=== PATIENT | female | born 1960 | race Caucasian/White ===

== ENCOUNTER 2018-05-13 08:17 | Outpatient (CLI) | payer MEDICAID, SELFPAY ==
[2018-05-13 08:41] LABS: Mean Corp. HGB Concentration 34.2 g/dL (32.0-36.0); Mean Corpuscular Hemoglobin 30.8 pg (27.0-33.0); Mean Platelet Volume 11.3 fL (8.0-11.0); Platelet Count 247 x1000/uL (130-400); RBC 4.22 m/cumm (4.00-5.20); RBC Distribution Width 12.2 % (11.7-14.6); White Blood Cell Count 6.95 k/cumm (4.4-10.8)
[2018-05-13 09:42] LABS: Anion Gap 9.6 mmol/L (3-11); BUN 23 mg/dL (7-18); CO2 29.4 mmol/L (21.0-32.0); CREATININE 1.18 mg/dL (0.55-1.02); Chloride 103 mmol/L (98-107); Estimated GFR 47.05 (mL/min/1.73m2); Magnesium 2.1 mg/dL (1.8-2.4); Potassium 4.8 mmol/L (3.5-5.1); Sodium 142 mmol/L (136-145)
[2018-05-13 09:49] LABS: Hemoglobin A1C 6.4 % (4.5-6.2)
[2018-05-13 09:53] LABS: Microalb ug/mg Crea 3.1 ug/mg Cr
== END 2018-05-13 08:18 ==
PROVIDERS: PCP General Practice; Visit Provider General Practice
DX: K92.1 Melena (principal); R07.9 Chest pain, unspecified
CPT/HCPCS: 36415; 80051; 84520; 85027; 82043; 82565; 82570; 83036; 83735

== ENCOUNTER 2018-12-22 13:41 | Emergency (ER) | payer MEDICAID, SELFPAY ==
[2018-12-22] VITALS (17 sets, daily range): BP systolic 95–128; BP diastolic 56–89; PULSE 36–112; RESP 13–22; TEMP 36.5; O2SAT 95–99
[2018-12-22 14:29] LABS: Abs Immature Grans 0.01 k/cumm (0.0-0.09); Absolute Basophil Count 0.06 k/cumm (0.0-0.2); Absolute Eosinophil Count 0.19 k/cumm (0.0-0.7); Absolute Lymphocyte Count 2.53 k/cumm (1.2-3.4); Absolute Monocyte Count 0.66 k/cumm (0.11-0.7); Absolute Neutrophil Count 4.63 k/cumm (1.2-6.7); Basophils % 0.7; Eosinophils % 2.4; HCT 41.7 % (36.0-46.0); HGB 14.3 g/dL (12.0-15.5); Immature Grans % 0.1; Lymphocytes % 31.3; Mean Corp. HGB Concentration 34.3 g/dL (32.0-36.0); Mean Corpuscular Hemoglobin 30.6 pg (27.0-33.0); Mean Corpuscular Volume 89.1 fL (80-95); Mean Platelet Volume 11.3 fL (8.0-11.0); Monocytes % 8.2; Neutrophils % 57.3; Platelet Count 231 x1000/uL (130-400); RBC 4.68 m/cumm (4.00-5.20); RBC Distribution Width 12.7 % (11.7-14.6); White Blood Cell Count 8.08 k/cumm (4.4-10.8)
[2018-12-22 14:57] LABS: ALT 22 U/L (12-78); AST 17 U/L (15-37); Albumin 4.4 g/dL (3.4-5.0); Alkaline Phosphatase 75 U/L (46-116); Anion Gap 12.2 mmol/L (3-11); BUN 19 mg/dL (7-18); Bilirubin, Total 0.4 mg/dL (0.2-1.0); CO2 28.8 mmol/L (21.0-32.0); CREATININE 1.19 mg/dL (0.55-1.02); Calcium 9.9 mg/dL (8.5-10.1); Chloride 98 mmol/L (98-107); Estimated GFR 46.43 (mL/min/1.73m2); Glucose 100 mg/dL (70-100); Magnesium 1.9 mg/dL (1.8-2.4); Potassium 3.7 mmol/L (3.5-5.1); Sodium 139 mmol/L (136-145); Total Protein 8.8 g/dL (6.4-8.2)
[2018-12-22 15:01] LABS: Troponin I < 0.02 ng/mL (0.00-0.06)
[2018-12-22 15:04] LABS: TSH (W/Ref FT4) 3.37 uIU/mL (0.358-3.74)
--- NOTE | 2018-12-22 15:04 | W.ED.GENAD ---
Discharge Plan Disposition Patient Disposition: HOME Discharge Details Chief Complaint: Chest Pain Clinical Impression: Shingles, Arrhythmia Primary Care Provider: Ad Gonzalez ED Provider: Toan Calvillo Home Meds and New Rx's Prescriptions: New valacyclovir [Valtrex] 1 gram tablet 1,000 mg PO TID 7 Days Qty: 20 RF: 0 lidocaine 5 % adhesive patch,medicated 1 patch TP DAILY Qty: 15 RF: 0 Continued metformin 500 mg tablet 500 mg PO BID RF: 0 aspirin 325 mg tablet 325 mg PO DAILY RF: 0 Cholestyramine Light 4 gram powder 4 gm PO BID RF: 0 ranitidine HCl 150 MG capsule 150 mg PO DAILY RF: 0 hydrochlorothiazide 25 MG tablet 25 mg PO DAILY RF: 0 Slow-Mag 71.5 MG tablet,delayed release (DR/EC) 143 mg PO DAILY Qty: 1 RF: 0 lisinopril 20 MG tablet 20 mg PO DAILY Qty: 30 RF: 0 acetaminophen [Mapap Extra Strength] 500 MG tablet 500 mg PO PRN PRN (Reason: Pain) RF: 0 Discharge Instructions Additional Instructions: Please go to cardiology clinic today to be seen by Dr. Hernandez. Please contact your primary care physician to arrange follow-up. Call today. Return to the ER for any worsening or new concerning symptoms. Referrals: Ad Gonzalez MD [Primary Care Provider] - Mike Hernandez MD [MD NON-[facility] STAFF PHYSICIAN] - Medical Decision Making 15:29 -- 58yo f with questionable history of atrial fibrillation, here with left lateral chest wall pain, skin sensitivity and vesicular rash left T5 dermatome. Suspect shingles - will treat with valtrex (rash noticed <72 hours ago) and lidocaine patch. Screening labs were sent by nursing per protocol for chest pain, reviewed by me and nondiagnostic. He was reviewed and interpreted by me: No discernible P waves, narrow complex at rate of approximately 35 bpm, appears to be a junctional escape rhythm versus bigeminy. I called and spoke with Dr. Hernandez, on-call technical services coordinator, he reviewed the ECG and we discussed the patient's presentation. He recommends outpatient follow-up and will be happy to see the patient in clinic today. Patient was instructed to go to cardiology clinic today as arranged. Dental infection recently completed amoxicillin and plan for extraciton tomorrow. 12 customary discharge instructions were provided. HPI General Mode of arrival: ambulatory. Date/Time Provider Initiated Documentation: 12/22/18 14:06. Limitations to Documentation: no limitations. Information obtained by: patient. HPI Narrative: 58 yo f with history of diabetes, questionable atrial fibrillation, recent dental infection completed course of amoxicillin today with plan for dental extraction tomorrow, here with left chest pain. Patient notes the pain started about 1 week ago. Patient states the pain started as a skin sensitivitythat was localized to her left back and radiated around laterally along flank to chest. She subsequently developed a stabbing sensation left chest that has since resolved and now continues to have skin sensitivity and pulsing sensation along her skin. Pain is now localized lateral chest wall and under her left breast. notes that there is a subtle rash in the area left back that started 2 days ago. She denies fevers. She has no associated shortness of breath. Denies syncope. Related Data Home Medications Medication Instructions Recorded Confirmed Slow-Mag 143 mg PO DAILY #1 04/18/15 12/22/18 hydrochlorothiazide 25 mg PO DAILY tab-cap 04/18/15 12/22/18 lisinopril 20 mg PO DAILY #30 tab-cap 04/18/15 12/22/18 ranitidine HCl 150 mg PO DAILY tab-cap 04/18/15 12/22/18 acetaminophen [Mapap Extra 500 mg PO PRN PRN 05/31/15 12/22/18 Strength] aspirin 325 mg tablet 325 mg PO DAILY 07/21/18 12/22/18 cholestyramine-aspartame 4 gram 4 gm PO BID gm 07/21/18 12/22/18 oral powder metformin 500 mg tablet 500 mg PO BID 07/21/18 12/22/18 lidocaine 1 patch TP DAILY #15 each 12/22/18 valacyclovir [Valtrex] 1,000 mg PO TID 7 Days #20 tab 12/22/18 Previous Rx's Medication Instructions Recorded lidocaine 1 patch TP DAILY #15 each 12/22/18 valacyclovir [Valtrex] 1,000 mg PO TID 7 Days #20 tab 12/22/18 Allergies Allergy/AdvReac Type Severity Reaction Status Date / Time No Known Allergies Allergy Unverified 06/16/15 10:17 General Stated Complaint: Chest Pain MARIO: 2 Review of Systems Review of Systems All systems reviewed & are unremarkable except as noted in HPI and below Constitutional Denies fever(s) Cardiovascular Denies dyspnea Respiratory Denies cough and Denies dyspnea Integumentary/Breasts Reports as per HPI [facility] Medical History Diverticulitis Migraines Chronic back pain GERD (gastroesophageal reflux disease) Hypertension Surgical History Cholecystectomy (06/01/15) Social History Smoking/Tobacco Use Status: Former Tobacco Use Alcohol Intake: former Drug use: Never Substance use type: does not use Exam Const General: cooperative and no acute distress HENMT Mouth: moist mucous membranes Eyes Conjunctivae: normal conjunctivae Sclera: normal sclerae Resp Auscultation: clear to auscultation bilaterally, no rales, no rhonchi and no wheezes Cardio Jugular venous pressure: no JVD Rate: regular rate and not tachycardic Rhythm: abnormal rhythm GI Palpation: soft, not firm, no guarding, no masses, not rigid and nontender Skin Rashes: rashes noted (Vesicular rash without ulceration left T5 dermatome, ttp) Neuro General: alert, awake and tone normal Extrem General: no edema Course Vital Signs Temperature 36.5 C 12/22/18 13:44 Pulse 36 L 12/22/18 13:44 Respiratory Rate 18 12/22/18 13:44 Blood Pressure 124/73 12/22/18 13:44 Pulse Oximetry 98 12/22/18 13:44 Temperature 36.5 C 12/22/18 13:44 Temperature Source Skin 12/22/18 13:44 Pulse 36 L 12/22/18 13:44 Respiratory Rate 18 12/22/18 13:44 Blood Pressure 124/73 12/22/18 13:44 Pulse Oximetry 98 12/22/18 13:44 Oxygen Delivery Method Room Air 12/22/18 13:44 Oxygen Flow Rate 0 12/22/18 13:44 Lab/Test Results Lab/Test Results: Laboratory Tests Range/Units 12/22/18 12/22/18 14:09 14:09 WBC (4.4-10.8) k/cumm 8.08 RBC (4.00-5.20) m/cumm 4.68 Hgb (12.0-15.5) g/dL 14.3 Hct (36.0-46.0) % 41.7 MCV (80-95) fL 89.1 MCH (27.0-33.0) pg 30.6 MCHC (32.0-36.0) g/dL 34.3 RDW (11.7-14.6) % 12.7 Plt Count (130-400) x1000/uL 231 MPV (8.0-11.0) fL 11.3 H Immature Gran % 0.1 Neutrophils % 57.3 Lymphocytes % 31.3 Monocytes % 8.2 Eosinophils % 2.4 Basophils % 0.7 Absolute Neutrophils (1.2-6.7) k/cumm 4.63 Absolute Lymphocytes (1.2-3.4) k/cumm 2.53 Absolute Monocytes (0.11-0.7) k/cumm 0.66 Absolute Eosinophils (0.0-0.7) k/cumm 0.19 Absolute Basophils (0.0-0.2) k/cumm 0.06 Sodium (136-145) mmol/L 139 Potassium (3.5-5.1) mmol/L 3.7 Chloride (98-107) mmol/L 98 Carbon Dioxide (21.0-32.0) mmol/L 28.8 Anion Gap (3-11) mmol/L 12.2 H BUN (7-18) mg/dL 19 H Creatinine (0.55-1.02) mg/dL 1.19 H Estimated GFR/1.73 m2 (mL/min/1.73m2) 46.43 Glucose (70-100) mg/dL 100 Calcium (8.5-10.1) mg/dL 9.9 Magnesium (1.8-2.4) mg/dL 1.9 Total Bilirubin (0.2-1.0) mg/dL 0.4 AST (15-37) U/L 17 ALT (12-78) U/L 22 Alkaline Phosphatase (46-116) U/L 75 Troponin I (0.00-0.06) ng/mL < 0.02 Total Protein (6.4-8.2) g/dL 8.8 H Albumin (3.4-5.0) g/dL 4.4
--- NOTE | 2018-12-22 15:08 | ED.GENADUL_ITS ---
Discharge Plan Disposition Patient Disposition: HOME Discharge Details Chief Complaint: Chest Pain Clinical Impression: Shingles, Arrhythmia Primary Care Provider: Ad Gonzalez ED Provider: Toan Calvillo Home Meds and New Rx's Prescriptions: New valacyclovir [Valtrex] 1 gram tablet 1,000 mg PO TID 7 Days Qty: 20 RF: 0 lidocaine 5 % adhesive patch,medicated 1 patch TP DAILY Qty: 15 RF: 0 Continued metformin 500 mg tablet 500 mg PO BID RF: 0 aspirin 325 mg tablet 325 mg PO DAILY RF: 0 Cholestyramine Light 4 gram powder 4 gm PO BID RF: 0 ranitidine HCl 150 MG capsule 150 mg PO DAILY RF: 0 hydrochlorothiazide 25 MG tablet 25 mg PO DAILY RF: 0 Slow-Mag 71.5 MG tablet,delayed release (DR/EC) 143 mg PO DAILY Qty: 1 RF: 0 lisinopril 20 MG tablet 20 mg PO DAILY Qty: 30 RF: 0 acetaminophen [Mapap Extra Strength] 500 MG tablet 500 mg PO PRN PRN (Reason: Pain) RF: 0 Discharge Instructions Additional Instructions: Please go to cardiology clinic today to be seen by Dr. Hernandez. Please contact your primary care physician to arrange follow-up. Call today. Return to the ER for any worsening or new concerning symptoms. Referrals: Ad Gonzalez MD [Primary Care Provider] - Mike Hernandez MD [MD NON-[facility] STAFF PHYSICIAN] - Medical Decision Making 15:29 -- 58yo f with questionable history of atrial fibrillation, here with left lateral chest wall pain, skin sensitivity and vesicular rash left T5 dermatome. Suspect shingles - will treat with valtrex (rash noticed <72 hours ago) and lidocaine patch. Screening labs were sent by nursing per protocol for chest pain, reviewed by me and nondiagnostic. He was reviewed and interpreted by me: No discernible P waves, narrow complex at rate of approximately 35 bpm, appears to be a junctional escape rhythm versus bigeminy. I called and spoke with Dr. Hernandez, on-call ems manager, he reviewed the ECG and we discussed the patient's presentation. He recommends outpatient follow-up and will be happy to see the patient in clinic today. Patient was instructed to go to cardiology clinic today as arranged. Dental infection recently completed amoxicillin and plan for extraciton pita orrow. 12 customary discharge instructions were provided. HPI General Mode of arrival: ambulatory . Date/Time Provider Initiated Documentation: 12/22/18 14:06 . Limitations to Documentation: no limitations . Information obtained by: patient . HPI Narrative: 58 yo f with history of diabetes, questionable atrial fibrillation, recent dental infection completed course of amoxicillin today with plan for dental extraction tomorrow, here with left chest pain. Patient notes the pain started about 1 week ago. Patient states the pain started as a skin sensitivitythat was localized to her left back and radiated around laterally along flank to chest. She subsequently developed a stabbing sensation left chest that has since resolved and now continues to have skin sensitivity and pulsing sensation along her skin. Pain is now localized lateral chest wall and under her left breast. notes that there is a subtle rash in the area left back that started 2 days ago. She denies fevers. She has no associated shortness of breath. Denies syncope. Related Data Home Medications Medication Instructions Recorded Confirmed Slow-Mag 143 mg PO DAILY #1 04/18/15 12/22/18 hydrochlorothiazide 25 mg PO DAILY tab-cap 04/18/15 12/22/18 lisinopril 20 mg PO DAILY #30 tab-cap 04/18/15 12/22/18 ranitidine HCl 150 mg PO DAILY tab-cap 04/18/15 12/22/18 acetaminophen [Mapap Extra 500 mg PO PRN PRN 05/31/15 12/22/18 Strength] aspirin 325 mg tablet 325 mg PO DAILY 07/21/18 12/22/18 cholestyramine-aspartame 4 gram 4 gm PO BID gm 07/21/18 12/22/18 oral powder metformin 500 mg tablet 500 mg PO BID 07/21/18 12/22/18 lidocaine 1 patch TP DAILY #15 each 12/22/18 valacyclovir [Valtrex] 1,000 mg PO TID 7 Days #20 tab 12/22/18 Previous Rx's Medication Instructions Recorded lidocaine 1 patch TP DAILY #15 each 12/22/18 valacyclovir [Valtrex] 1,000 mg PO TID 7 Days #20 tab 12/22/18 Allergies Allergy/AdvReac Type Severity Reaction Status Date / Time No Known Allergies Allergy Unverified 06/16/15 10:17 General Stated Complaint: Chest Pain MARIO: 2 Review of Systems Review of Systems All systems reviewed & are unremarkable except as noted in HPI and below Constitutional Denies fever(s) Cardiovascular Denies dyspnea Respiratory Denies cough and Denies dyspnea Integumentary/Breasts Reports as per HPI [facility] Medical History Diverticulitis Migraines Chronic back pain GERD (gastroesophageal reflux disease) Hypertension Surgical History Cholecystectomy (06/01/15) Social History Smoking/Tobacco Use Status: Former Tobacco Use Alcohol Intake: former Drug use: Never Substance use type: does not use Exam Const General: cooperative and no acute distress HENMT Mouth: moist mucous membranes Eyes Conjunctivae: normal conjunctivae Sclera: normal sclerae Resp Auscultation: clear to auscultation bilaterally, no rales, no rhonchi and no wheezes Cardio Jugular venous pressure: no JVD Rate: regular rate and not tachycardic Rhythm: abnormal rhythm GI Palpation: soft, not firm, no guarding, no masses, not rigid and nontender Skin Rashes: rashes noted (Vesicular rash without ulceration left T5 dermatome, ttp) Neuro General: alert, awake and tone normal Extrem General: no edema Course Vital Signs Temperature 36.5 C 12/22/18 13:44 Pulse 36 L 12/22/18 13:44 Respiratory Rate 18 12/22/18 13:44 Blood Pressure 124/73 12/22/18 13:44 Pulse Oximetry 98 12/22/18 13:44 Temperature 36.5 C 12/22/18 13:44 Temperature Source Skin 12/22/18 13:44 Pulse 36 L 12/22/18 13:44 Respiratory Rate 18 12/22/18 13:44 Blood Pressure 124/73 12/22/18 13:44 Pulse Oximetry 98 12/22/18 13:44 Oxygen Delivery Method Room Air 12/22/18 13:44 Oxygen Flow Rate 0 12/22/18 13:44 Lab/Test Results Lab/Test Results: Laboratory Tests Range/Units 12/22/18 12/22/18 14:09 14:09 WBC (4.4-10.8) k/cumm 8.08 RBC (4.00-5.20) m/cumm 4.68 Hgb (12.0-15.5) g/dL 14.3 Hct (36.0-46.0) % 41.7 MCV (80-95) fL 89.1 MCH (27.0-33.0) pg 30.6 MCHC (32.0-36.0) g/dL 34.3 RDW (11.7-14.6) % 12.7 Plt Count (130-400) x1000/uL 231 MPV (8.0-11.0) fL 11.3 H Immature Gran % 0.1 Neutrophils % 57.3 Lymphocytes % 31.3 Monocytes % 8.2 Eosinophils % 2.4 Basophils % 0.7 Absolute Neutrophils (1.2-6.7) k/cumm 4.63 Absolute Lymphocytes (1.2-3.4) k/cumm 2.53 Absolute Monocytes (0.11-0.7) k/cumm 0.66 Absolute Eosinophils (0.0-0.7) k/cumm 0.19 Absolute Basophils (0.0-0.2) k/cumm 0.06 Sodium (136-145) mmol/L 139 Potassium (3.5-5.1) mmol/L 3.7 Chloride (98-107) mmol/L 98 Carbon Dioxide (21.0-32.0) mmol/L 28.8 Anion Gap (3-11) mmol/L 12.2 H BUN (7-18) mg/dL 19 H Creatinine (0.55-1.02) mg/dL 1.19 H Estimated GFR/1.73 m2 (mL/min/1.73m2) 46.43 Glucose (70-100) mg/dL 100 Calcium (8.5-10.1) mg/dL 9.9 Magnesium (1.8-2.4) mg/dL 1.9 Total Bilirubin (0.2-1.0) mg/dL 0.4 AST (15-37) U/L 17 ALT (12-78) U/L 22 Alkaline Phosphatase (46-116) U/L 75 Troponin I (0.00-0.06) ng/mL < 0.02 Total Protein (6.4-8.2) g/dL 8.8 H Albumin (3.4-5.0) g/dL 4.4
[2018-12-22] MEDS: valACYclovir 500 MG TAB 1000 MG PO (15:18)
[2018-12-22] MEDS: Lidocaine 5% Patch 1 PATCH (16:02)
== END 2018-12-22 15:30 | disposition home or self-care (01) ==
PROVIDERS: Emergency Provider Student in an Organized Health Care Education/Training Program; PCP General Practice
DX: B02.9 Zoster without complications (principal); I49.9 Cardiac arrhythmia, unspecified; E11.9 Type 2 diabetes mellitus without complications; Z79.84 Long term (current) use of oral hypoglycemic drugs; I10 Essential (primary) hypertension
CPT/HCPCS: 36415; 80053; 93005; 99284; 83735; 84443; 84484; 85025; 93010

== ENCOUNTER 2018-12-26 03:07 | Outpatient (CLI) | payer MEDICAID, SELFPAY ==
--- NOTE | 2018-12-29 16:06 | HOLTER_ITS ---
DATE OF ROLLER LEVELER OPERATOR: December 29, 2018 INDICATION: Not available. REQUESTING PROVIDER: Mike Hernandez M.D. FINDINGS: The patient was monitored for two days. Baseline rhythm sinus rhythm. Average heart rate 76 bpm, range 53-115 bpm. Frequent PVC's, 7.9%, 16,644 beats per 48 hours. No VT. Rare PAC's, 0.3%, 681 PAC's per 48 hours. One 6-beat atrial run with a maximum heart rate of 156 bpm. No pauses greater than three seconds. No high-degree heart block. No patient events. FINAL INTERPRETATION: Frequent PVC's, asymptomatic.
== END 2018-12-26 03:27 ==
PROVIDERS: PCP General Practice; Visit Provider Internal Medicine Interventional Cardiology
DX: I48.91 Unspecified atrial fibrillation (principal); I47.1 Supraventricular tachycardia
CPT/HCPCS: 93225

== ENCOUNTER 2018-12-29 09:35 | Outpatient (CLI) | payer MEDICAID, SELFPAY | END 2018-12-29 09:55 | PROVIDERS: PCP General Practice; Visit Provider Internal Medicine Interventional Cardiology | DX: I48.91 Unspecified atrial fibrillation (principal); I47.1 Supraventricular tachycardia | CPT/HCPCS: 93226 ==

== ENCOUNTER 2018-12-31 00:24 | Outpatient (CLI) | payer MEDICAID, SELFPAY ==
--- NOTE | 2018-12-31 14:00 | MERGE_ITS ---
*[facility]* *[facility]* [address] [place] [address] Date of study: 12/31/2018 Transthoracic Echocardiography M-mode, complete 2D, complete spectral Doppler, and color Doppler *STUDY CONCLUSIONS* Summary: 1. Left ventricle: The cavity size was normal. Wall thickness was normal. Systolic function was normal. The estimated ejection fraction was 55-60%. Wall motion was normal; there were no regional wall motion abnormalities. 2. Aortic valve: A bicuspid morphology cannot be excluded; normal thickness leaflets. There was trivial regurgitation. 3. Aorta: There was an aneurysm, in the ascending aorta. The maximal diameter was 4.5cm. 4. Right ventricle: The cavity size was normal. Wall thickness was normal. Systolic function was normal. 5. Tricuspid valve: There was mild-moderate regurgitation. *PATIENT PRESENTATION* Height: 172.7cm ((68in) ) S/D Pressure: 116 / 85 Weight: 95.7kg ((210.6lb) ) BSA: 2.17m^2 Test start time: 02:10 PM. Test stop time: 03:15 PM. REFERRING Mike Hernandez MD PERFORMING Unknown PERFORMING [facility] FANCY SEWER RT Joel Vo)(DAVID) DEVANG *PROCEDURE DATA* Procedure information: The patient was identified by two identifiers. This study was interpreted by [facility]. Pertinent images and digital data are archived for permanent storage and are available for subsequent review. No prior study was available for comparison. Study status: Routine. Transthoracic echocardiography. M-mode, complete 2D, complete spectral Doppler, and color Doppler. A Transthoracic Echocardiogram was performed. Scanning was performed from the parasternal, apical, subcostal, and suprasternal notch acoustic windows. Images were obtained using an [id number] cardiac ultrasound machine. Image quality was adequate. Study completion: The patient tolerated the procedure well. There were no complications. History: PMH: Atrial fibrillation i48.91. *CARDIAC ANATOMY* Left ventricle: The cavity size was normal. Wall thickness was normal. Systolic function was normal. The estimated ejection fraction was 55-60%. Wall motion was normal; there were no regional wall motion abnormalities. Diastolic parameters were normal. Aortic valve: A bicuspid morphology cannot be excluded; normal thickness leaflets. Mobility was not restricted. Doppler: Transvalvular velocity was within the normal range. There was no stenosis. There was trivial regurgitation. VTI ratio of LVOT to aortic valve: 0.51. Valve area (VTI): 1.6cm^2. Indexed valve area (VTI): 0.7cm^2/m^2. Peak velocity ratio of LVOT to aortic valve: 0.49. Valve area (Vmax): 1.5cm^2. Indexed valve area (Vmax): 0.7cm^2/m^2. Mean velocity ratio of LVOT to aortic valve: 0.5. Valve area (Vmean): 1.6cm^2. Indexed valve area (Vmean): 0.7cm^2/m^2. Mean gradient (S): 8.2mm Hg. Peak gradient (S): 13.5mm Hg. Aorta: There was an aneurysm, in the ascending aorta. The maximal diameter was 4.5cm. Aortic root: The aortic root was at upper normal limits. Ascending aorta: The ascending aorta was moderately dilated. Mitral valve: Structurally normal valve. Mobility was not restricted. Doppler: Transvalvular velocity was within the normal range. There was no evidence for stenosis. There was trivial regurgitation. Valve area by pressure half-time: 5.1cm^2. Indexed valve area by pressure half-time: 2.3cm^2/m^2. Peak gradient (D): 4.2mm Hg. Left atrium: The atrium was normal in size. Right ventricle: The cavity size was normal. Wall thickness was normal. Systolic function was normal. Pulmonic valve: Doppler: Transvalvular velocity was within the normal range. There was no evidence for stenosis. There was no significant regurgitation. Tricuspid valve: Structurally normal valve. Doppler: Transvalvular velocity was within the normal range. There was no evidence for stenosis. There was mild-moderate regurgitation. Pulmonary artery: Pulmonary systolic pressure was within the normal range, in the range of 30mm Hg to 35mm Hg. Right atrium: The atrium was normal in size. Pericardium: There was no pericardial effusion. Systemic veins: Inferior vena cava: Well visualized. The vessel was patent and normal in size. The respirophasic diameter changes were in the normal range (greater than or equal to 50%). Measurements Left ventricle Value Reference LV ID, ED, PLAX 5.1 cm 3.5 - 6.0 LV ID, ES, PLAX (H) 4.2 cm 2.1 - 4.0 LV PW thickness, ED, PLAX 0.8 cm LV end-diastolic volume, 1-p A2C 99 ml LV ejection fraction, 1-p A2C 57 % LV end-diastolic volume, 1-p A4C 87 ml LV ejection fraction, 1-p A4C 61 % LV e', lateral 0.152 m/sec LV E/e', lateral 7 LV e', medial 0.088 m/sec LV E/e', medial 12 LV e', average 0.12 m/sec LV E/e', average 9 Ventricular septum Value Reference IVS thickness, ED, PLAX 0.9 cm LVOT Value Reference LVOT ID, A-P 2.0 cm LVOT area 3.2 cm^2 LVOT peak velocity, S 0.9 m/sec LVOT mean velocity, S 0.67 m/sec LVOT VTI, S 19.0 cm LVOT peak gradient, S 3.2 mm Hg LVOT mean gradient, S 2.1 mm Hg Stroke volume (SV), LVOT DP 60 ml Stroke index (SV/bsa), LVOT DP 28 ml/m^2 Aortic valve Value Reference Aortic valve peak velocity, S 1.8 m/sec Aortic valve mean velocity, S 1.33 m/sec Aortic valve VTI, S 37.0 cm Aortic mean gradient, S 8.2 mm Hg Aortic peak gradient, S 13.5 mm Hg VTI ratio, LVOT/AV 0.51 Aortic valve area, VTI 1.6 cm^2 Velocity ratio, peak, LVOT/AV 0.49 Aortic valve area, peak velocity 1.5 cm^2 Velocity ratio, mean, LVOT/AV 0.5 Aortic valve area, mean velocity 1.6 cm^2 Aortic valve area/bsa, mean velocity 0.7 cm^2/m^2 Aorta Value Reference Aortic root ID, ED 3.7 cm Ascending aorta ID, A-P, S 4.5 cm Left atrium Value Reference LA ID, A-P, ES 3.3 cm LA ID/bsa, A-P 1.5 cm/m^2 <=2.2 LA area, ES, A4C 19.7 cm^2 8.8 - 23.4 LA area, ES, A2C 18 cm^2 LA volume/bsa, ES, 1-p A4C 28 ml/m^2 LA volume, ES, 2-p 55 ml LA volume/bsa, ES, 2-p 25 ml/m^2 LA/aortic root ratio 0.88 Mitral valve Value Reference Mitral E-wave peak velocity 1.03 m/sec Mitral A-wave peak velocity 0.78 m/sec Mitral deceleration time 150 ms 150 - 230 Mitral pressure half-time 44 ms Mitral peak gradient, D 4.2 mm Hg Mitral E/A ratio, peak 1.32 Mitral valve area, PHT, DP 5.1 cm^2 Tricuspid valve Value Reference Tricuspid regurg peak velocity 2.7 m/sec Tricuspid peak RV-RA gradient 28.4 mm Hg Right atrium Value Reference RA area, ES, A4C 18.3 cm^2 8.3 - 19.5 Legend: (L) and (H) polo values outside specified reference range. I have personally reviewed the images and have reviewed and edited the reported findings. Electronically signed by Joseph Villareal 12/31/2018 16:01
== END 2018-12-31 00:44 ==
PROVIDERS: PCP General Practice; Visit Provider Internal Medicine Interventional Cardiology
DX: I48.91 Unspecified atrial fibrillation (principal); I08.2 Rheumatic disorders of both aortic and tricuspid valves; I71.2 Thoracic aortic aneurysm, without rupture
CPT/HCPCS: 93306

== ENCOUNTER 2019-01-02 12:09 | Outpatient (CLI) | payer MEDICAID, SELFPAY ==
[2019-01-02 12:48] LABS: HCT 40.2 % (36.0-46.0); HGB 13.6 g/dL (12.0-15.5)
[2019-01-02 13:19] LABS: Hemoglobin A1C 6.6 % (4.5-6.2)
== END 2019-01-02 12:29 ==
PROVIDERS: PCP General Practice; Visit Provider General Practice
DX: E11.9 Type 2 diabetes mellitus without complications (principal); D64.9 Anemia, unspecified
CPT/HCPCS: 36415; 83036; 85014; 85018

== ENCOUNTER 2019-01-12 02:27 | Outpatient (CLI) | payer MEDICAID, SELFPAY ==
--- NOTE | 2019-02-02 10:59 | ZIOP_ITS ---
MONITOR IN PLACE: 13 days, 2 hours, January 12 - January 25, 2019 Baseline rhythm sinus. Rare single PAC. Single burst of SVT, 8-beat duration at 135 bpm. Frequent single PVC, 10.2% of total beat. Rare couplet. No VT. No bradycardia/block. One triggered event during sinus rhythm with single PAC and PVC 67 bpm. One symptomatic episode, flutter described once during sinus rhythm ventricular bigeminy 58 bpm. Average heart rate sinus 60 bpm, range 40-125 bpm.
== END 2019-01-12 02:47 ==
PROVIDERS: PCP General Practice; Visit Provider Internal Medicine Interventional Cardiology
DX: I48.91 Unspecified atrial fibrillation (principal); I49.3 Ventricular premature depolarization; I49.1 Atrial premature depolarization
CPT/HCPCS: 0296T

== ENCOUNTER 2019-01-12 14:41 | Outpatient (CLI) | payer MEDICAID, SELFPAY ==
[2019-01-12 16:24] LABS: Ferritin 137 ng/mL (8-388); Folate 19.5 ng/mL (8.6-20.0); TSH (W/Ref FT4) 1.87 uIU/mL (0.358-3.74); Vitamin B12 1103 pg/mL (193-986)
[2019-01-13 19:45] LABS: Vitamin D 25 Total 13.1 ng/ml (30-100)
== END 2019-01-12 15:01 ==
PROVIDERS: PCP General Practice; Visit Provider Internal Medicine Sleep Medicine
DX: M25.50 Pain in unspecified joint (principal); R53.83 Other fatigue; E55.9 Vitamin D deficiency, unspecified; I48.91 Unspecified atrial fibrillation; I49.3 Ventricular premature depolarization; I49.1 Atrial premature depolarization
CPT/HCPCS: 0296T; 36415; 82306; 82607; 82728; 82746; 84443

== ENCOUNTER 2019-08-11 11:10 | Emergency (ER) | payer MEDICAID, SELFPAY ==
[2019-08-11 11:12] VITALS: BP 113/88; PULSE 75; RESP 18; TEMP 36.7; O2SAT 98
--- NOTE | 2019-08-11 11:22 | W.ED.GENAD ---
Discharge Plan Disposition Patient Disposition: HOME Condition: Stable Discharge Details Chief Complaint: Orthopedic Clinical Impression: Foot pain, left Primary Care Provider: Ad Gonzalez ED Provider: Mike Florian Home Meds and New Rx's Prescriptions: New gabapentin 300 mg capsule 300 mg PO TID Qty: 30 RF: 0 prednisone 20 mg tablet 60 mg PO DAILY Qty: 15 RF: 0 Continued metformin 500 mg tablet 500 mg PO BID RF: 0 aspirin 325 mg tablet 325 mg PO DAILY RF: 0 Cholestyramine Light 4 gram powder 4 gm PO BID RF: 0 ranitidine HCl 150 MG capsule 150 mg PO DAILY RF: 0 hydrochlorothiazide 25 MG tablet 25 mg PO DAILY RF: 0 Slow-Mag 71.5 MG tablet,delayed release (DR/EC) 143 mg PO DAILY Qty: 1 RF: 0 lisinopril 20 MG tablet 20 mg PO DAILY Qty: 30 RF: 0 acetaminophen [Mapap Extra Strength] 500 MG tablet 500 mg PO PRN PRN (Reason: Pain) RF: 0 Discharge Instructions Instructions: Gout (ED) Additional Instructions: I suspect your symptoms are due to gout. It could also be due to your diabetes follow up with your primary care provider within 1-2 weeks if you have severe worsening pain or fevers return to the emergency department Medical Decision Making 58 yo female comes in with pain in her dorsal foot pain that is nontraumatic and denies fevers orchills. HAs had pain in similar area in the past and was on gabapentin with some relief of the pain. She has intact sensation of the foot with no swelling and full rom and 2+ pulses. She has very mild not warm to touch area on the foot that is 2x2cm. Given repeat pain in same foot suspect gout and will start her on steroids. NO findings to suggest infectious etiology. ADvised to f/u with pcp and return precautions given Differential Diagnosis Differential Diagnosis: gout, neuropathy HPI General Mode of arrival: ambulatory. Date/Time Provider Initiated Documentation: 08/11/19 11:11. Limitations to Documentation: no limitations. Information obtained by: patient. History of Present Illness 58 year old F presents to the emergency department with the chief complaint of left foot pain, described as moderate, Quality is described as aching, and it has been constant. No relieving factors improve symptom(s), No exacerbating factors reported . Patient did receive the following treatments prior to arrival, none Related Data Home Medications Medication Instructions Recorded Confirmed Slow-Mag 143 mg PO DAILY #1 04/18/15 08/11/19 hydrochlorothiazide 25 mg PO DAILY tab-cap 04/18/15 08/11/19 lisinopril 20 mg PO DAILY #30 tab-cap 04/18/15 08/11/19 ranitidine HCl 150 mg PO DAILY tab-cap 04/18/15 08/11/19 acetaminophen [Mapap Extra 500 mg PO PRN PRN 05/31/15 08/11/19 Strength] aspirin 325 mg tablet 325 mg PO DAILY 07/21/18 08/11/19 cholestyramine-aspartame 4 gram 4 gm PO BID gm 07/21/18 08/11/19 oral powder metformin 500 mg tablet 500 mg PO BID 07/21/18 08/11/19 gabapentin 300 mg PO TID #30 cap 08/11/19 prednisone 60 mg PO DAILY #15 tab 08/11/19 Previous Rx's Medication Instructions Recorded gabapentin 300 mg PO TID #30 cap 08/11/19 prednisone 60 mg PO DAILY #15 tab 08/11/19 Allergies Allergy/AdvReac Type Severity Reaction Status Date / Time No Known Allergies Allergy Unverified 08/11/19 11:17 General Stated Complaint: Orthopedic MARIO: 4 Review of Systems All systems reviewed & are unremarkable except as noted in HPI and below Constitutional Constitutional: Denies chills, Denies fever(s) and Denies weakness Cardiovascular Cardiovascular: Denies chest pain and Denies dyspnea Respiratory Respiratory: Denies dyspnea Gastrointestinal Gastrointestinal: Denies abdominal pain, Denies nausea and Denies vomiting Musculoskeletal Musculoskeletal: Denies joint swelling Neurologic Neurologic: Denies weakness [facility] Social History Smoking/Tobacco Use Status: Former Tobacco Use Alcohol Intake: former Drug use: Never Substance use type: does not use Do you feel safe at home: Yes Do you feel safe in your relationship?: Yes Exam Const General: no acute distress Orientation: alert HENMT Head: normal to inspection Ears: external ears normal General nose exam: external nose normal Mouth: moist mucous membranes Eyes General: appearance normal, both eyes and all related structures Neck Neck: normal visual inspection Resp Effort & Inspection: normal respiratory effort and able to speak in complete sentences Cardio Rate: regular rate Skin General skin exam: no rashes or lesions noted Neuro General: alert and oriented x3 Extrem General: full ROM and normal capillary refill Psych Mental Status: mental status grossly normal Course Vital Signs Vital signs: Vital Signs Temperature 36.7 C 08/11/19 11:12 Pulse 75 08/11/19 11:12 Respiratory Rate 18 08/11/19 11:12 Blood Pressure 113/88 08/11/19 11:12 Pulse Oximetry 98 08/11/19 11:12 Temperature 36.7 C 08/11/19 11:12 Temperature Source Skin 08/11/19 11:12 Pulse 75 08/11/19 11:12 Respiratory Rate 18 08/11/19 11:12 Respiratory Effort Non-Labored 08/11/19 11:19 Blood Pressure 113/88 08/11/19 11:12 Blood Pressure Position Sitting 08/11/19 11:12 Pulse Oximetry 98 08/11/19 11:12 Oxygen Delivery Method Room Air 08/11/19 11:12 Oxygen Flow Rate 0 08/11/19 11:12
== END 2019-08-11 11:35 | disposition home or self-care (01) ==
PROVIDERS: Emergency Provider Emergency Medicine; PCP General Practice
DX: M79.672 Pain in left foot (principal)
CPT/HCPCS: 99283

== ENCOUNTER 2019-08-25 17:42 | Emergency (ER) | payer MEDICAID, SELFPAY ==
[2019-08-25 17:47] VITALS: BP 147/101; PULSE 70; RESP 28; TEMP 36.6; O2SAT 98
--- NOTE | 2019-08-25 17:50 | W.ED.GENAD ---
Discharge Plan Disposition Patient Disposition: HOME Condition: Stable Discharge Details Chief Complaint: Orthopedic Clinical Impression: Left foot pain, Inflammation, skin Primary Care Provider: Ad Gonzalez ED Provider: Kay Young Home Meds and New Rx's Prescriptions: New prednisone 20 mg tablet See Rx Instructions .ROUTE .COMPLEX Qty: 12 RF: 0 cephalexin [Keflex] 500 mg capsule 500 mg PO QID 7 Days Qty: 28 RF: 0 Continued metformin 500 mg tablet 500 mg PO BID RF: 0 aspirin 325 mg tablet 325 mg PO DAILY RF: 0 Cholestyramine Light 4 gram powder 4 gm PO BID RF: 0 ranitidine HCl 150 MG capsule 150 mg PO DAILY RF: 0 hydrochlorothiazide 25 MG tablet 25 mg PO DAILY RF: 0 lisinopril 20 MG tablet 20 mg PO DAILY Qty: 30 RF: 0 acetaminophen [Mapap Extra Strength] 500 MG tablet 500 mg PO PRN PRN (Reason: Pain) RF: 0 Discharge Instructions Instructions: Cellulitis (ED), Leg Pain (ED) Additional Instructions: It is unclear if your symptoms are due to inflammation or infection. You are getting steroids to help with inflammation and antibiotics for infection if symptoms do not improve with steroids. Alternate Tylenol and Motrin as needed and directed for pain. Take the series until finished. If you have no relief or worsening of symptoms in the next few days, start the antibiotics. If you develop any significant worsening of symptoms such as fever, spreading of redness up your extremity, significant worsening of pain, return to the emergency department. 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 Referrals: Christopher Roa DPM [[facility] STAFF PHYSICIAN] - Discharge Data Discharge Date/Time-TO BE ENTERED AT DEPARTURE: 08/25/19 18:55 Discharge Physician: Kay Young Medical Decision Making 58-year-old female with a history of diabetes, GERD, hypertension presents with left foot pain, redness and swelling for the past 2 weeks. She was seen here 2 weeks ago and diagnosed with gout and treated with steroids. She states the steroids significantly improved her symptoms until she finished them and then the symptoms returned. She denies any new injury, exposure. Denies any fever. She did state that she was diagnosed with neuropathy last year on her left foot but she states this was after they noticed a red papule. Discussed that neuropathy is generally pain, numbness or tingling. She states she has no history of numbness or tingling and only the pain and redness in her left foot for the past 2 weeks. There is a localized area of minimal erythema and edema with moderate tenderness on lateral distal foot. Tenderness extends to the ball and arch of foot. No extension of erythema or edema into the toes or ankle. No abnormality to inspection of heel or plantar surface. Neurovascularly intact. Discussed with patient that differential diagnosis can include inflammation, or possibly infection. There are no open wounds, lesions or rash. She denies any history of known foreign body and there is no obvious trauma, so do not see an indication for x-ray at this time the patient is agreeable. As patient's symptoms improved with steroids, will prescribe another longer regimen. We will also send with a prescription for antibiotics if symptoms do not improve or worsen over the next few days. Skin markings placed around the edges of erythema. Patient was advised to rest, elevate and apply ice to the affected area several times daily. She was given Dr. Roa's follow-up information for reevaluation and for regular checkups considering her history of diabetes. [facility] General Mode of arrival: ambulatory. Date/Time Provider Initiated Documentation: 08/25/19 17:42. Limitations to Documentation: no limitations. Information obtained by: patient. History of Present Illness 58 year old F presents to the emergency department with the chief complaint of L foot pain, redness, and swelling , Quality is described as burning and aching, and is localized to the lower extremity (Left foot). Patient extremity. Patient started experiencing this week(s) (2) and it has been constant. Rest improves symptom(s), Movement worsens symptoms . Patient notes denies confusion, chest pain, cough, diaphoresis, fever/chills, headaches, loss of appetite, malaise, nausea/vomiting, rash, seizure, shortness of breath, syncope and weakness. Patient did receive the following treatments prior to arrival, none Related Data Home Medications Medication Instructions Recorded Confirmed hydrochlorothiazide 25 mg PO DAILY tab-cap 04/18/15 08/25/19 lisinopril 20 mg PO DAILY #30 tab-cap 04/18/15 08/25/19 ranitidine HCl 150 mg PO DAILY tab-cap 04/18/15 08/25/19 acetaminophen [Mapap Extra 500 mg PO PRN PRN 05/31/15 08/25/19 Strength] aspirin 325 mg tablet 325 mg PO DAILY 07/21/18 08/25/19 cholestyramine-aspartame 4 gram 4 gm PO BID gm 07/21/18 08/25/19 oral powder metformin 500 mg tablet 500 mg PO BID 07/21/18 08/25/19 cephalexin [Keflex] 500 mg PO QID 7 Days #28 cap 08/25/19 prednisone See Rx Instructions .ROUTE 08/25/19 .COMPLEX #12 tab Previous Rx's Medication Instructions Recorded cephalexin [Keflex] 500 mg PO QID 7 Days #28 cap 08/25/19 prednisone See Rx Instructions .ROUTE 08/25/19 .COMPLEX #12 tab Allergies Allergy/AdvReac Type Severity Reaction Status Date / Time No Known Allergies Allergy Unverified 08/25/19 17:51 General MARIO: 4 Review of Systems All systems reviewed & are unremarkable except as noted in HPI and below Constitutional Constitutional: Reports as per HPI, Denies chills and Denies fever(s) Eyes Eyes: Denies blurry vision ENT Ears, Nose, Mouth, and Throat: Denies dizziness, Denies sore throat and Denies throat swelling Cardiovascular Cardiovascular: Denies chest pain and Denies dyspnea Respiratory Respiratory: Denies cough and Denies dyspnea Gastrointestinal Gastrointestinal: Denies abdominal pain, Denies diarrhea and Denies vomiting Genitourinary Genitourinary: Denies hematuria and Denies dysuria Musculoskeletal Musculoskeletal: Denies back pain and Denies numbness Comments: Left foot pain and redness Integumentary/Breasts Skin/Breast: Denies lesions and Denies rash Neurologic Neurologic: Denies dizziness, Denies focal weakness and Denies numbness Allergic/Immunologic Allergic/Immunologic: Denies throat swelling [facility] Medical History Chronic back pain Diverticulitis GERD (gastroesophageal reflux disease) Hypertension Migraines Surgical History Cholecystectomy (06/01/15) DR.TERRY CHONG Social History Smoking/Tobacco Use Status: Former Tobacco Use Alcohol Intake: former Drug use: Never Substance use type: does not use Do you feel safe at home: Yes Do you feel safe in your relationship?: Yes Exam Const General: cooperative, healthy appearing and no acute distress [facility] Head: normal to inspection Mouth: oral mucosae normal Eyes General: appearance normal, both eyes and all related structures Neck Neck: normal visual inspection Resp Effort & Inspection: normal respiratory effort and able to speak in complete sentences Cardio Rate: regular rate Skin General skin exam: no rashes or lesions noted Neuro General: alert, awake and oriented x3 Motor: muscle tone normal throughout Extrem Ankle/foot/toe images: 1. Mild to moderate edema, faint erythema and tenderness to palpation on lateral distal aspect of foot. No induration, fluctuance, lesions or rash. No ecchymosis. Other: Left DP/PT pulses intact. Tenderness to palpation of plantar surface including ball and arch of left foot. No tenderness palpation of heel. Psych Appearance: grossly normal Affect: normal affect
[2019-08-25] MEDS: predniSONE 20 MG TAB 60 MG PO (18:15)
== END 2019-08-25 18:55 | disposition home or self-care (01) ==
PROVIDERS: Emergency Provider Physician Assistant; PCP General Practice
DX: R60.0 Localized edema (principal); M79.672 Pain in left foot; E11.9 Type 2 diabetes mellitus without complications; Z79.84 Long term (current) use of oral hypoglycemic drugs; I10 Essential (primary) hypertension
CPT/HCPCS: 99283; J7512

== ENCOUNTER 2019-09-01 08:07 | Outpatient (CLI) | payer MEDICAID, SELFPAY ==
[2019-09-01 08:39] LABS: Abs Immature Grans 0.08 k/cumm (0.0-0.09); Absolute Basophil Count 0.03 k/cumm (0.0-0.2); Absolute Lymphocyte Count 4.66 k/cumm (1.2-3.4); Absolute Monocyte Count 0.92 k/cumm (0.11-0.7); Absolute Neutrophil Count 7.45 k/cumm (1.2-6.7); Basophils % 0.2; Eosinophils % 1.1; HCT 39.3 % (36.0-46.0); HGB 13.1 g/dL (12.0-15.5); Immature Grans % 0.6; Lymphocytes % 35.1; Mean Corp. HGB Concentration 33.3 g/dL (32.0-36.0); Mean Corpuscular Hemoglobin 30.4 pg (27.0-33.0); Mean Corpuscular Volume 91.2 fL (80-95); Mean Platelet Volume 10.8 fL (8.0-11.0); Monocytes % 6.9; Neutrophils % 56.1; Platelet Count 293 x1000/uL (130-400); RBC 4.31 m/cumm (4.00-5.20); White Blood Cell Count 13.28 k/cumm (4.4-10.8)
[2019-09-01 08:46] LABS: Absolute Eosinophil Count 0.15 k/cumm (0.0-0.7)
[2019-09-01 09:25] LABS: ESR 31 mm/hr (0-30)
[2019-09-01 11:16] LABS: Anion Gap 10.4 mmol/L (3-11); BUN 27 mg/dL (7-18); C-Reactive Protein 0.11 mg/dL (0.0-0.3); CO2 29.6 mmol/L (21.0-32.0); CREATININE 1.24 mg/dL (0.55-1.02); Calcium 9.5 mg/dL (8.5-10.1); Chloride 102 mmol/L (98-107); Estimated GFR 44.27 (mL/min/1.73m2); Glucose 107 mg/dL (74-106); Potassium 3.9 mmol/L (3.5-5.1); Sodium 142 mmol/L (136-145); Uric Acid 9.2 mg/dL (2.6-6.0)
== END 2019-09-01 08:27 ==
PROVIDERS: PCP General Practice; Visit Provider Podiatrist
DX: M79.672 Pain in left foot (principal); M10.072 Idiopathic gout, left ankle and foot
CPT/HCPCS: 36415; 80048; 85652; 84550; 85025; 86140

== ENCOUNTER 2020-03-08 00:10 | Outpatient (CLI) | payer MEDICAID, SELFPAY ==
--- NOTE | 2020-03-08 16:02 | DI.MAMMO_ITS ---
EXAM: MAMMO SCREENING CLINICAL HISTORY: SCREENING Z12.39 TECHNIQUE: Mammograms were interpreted according to the usual protocol including computer analysis w [employer] CAD system, tomosynthesis and C-view imaging. COMPARISON: 2014 FINDINGS: The breasts are composed of scattered fibroglandular densities, Breast Density category B. No suspicious masses or suspicious microcalcifications are seen. No skin thickening or abnormal axillary lymph nodes are seen. There has been no significant change from prior exams. IMPRESSION: BI-RADS Category 1 - Negative Yearly screening mammography is recommended. Breast Density Category B, scattered fibroglandular densities.
== END 2020-03-08 00:30 ==
PROVIDERS: PCP Physician Assistant; Visit Provider Physician Assistant
DX: Z12.31 Encounter for screening mammogram for malignant neoplasm of breast (principal)
CPT/HCPCS: 77063; 77067

== ENCOUNTER 2020-03-31 00:18 | Outpatient (CLI) | payer MEDICAID, SELFPAY ==
--- NOTE | 2020-03-31 10:19 | DI.US_ITS ---
APPROVED REPORT EXAM: Comprehensive 2D, Doppler, and color-flow Echocardiogram Patient Location: Out-Patient Teacher Of [employer]: Sofia Azul RDCS (AE) Indications: Aortic Insufficiency Other Information Study Quality: Adequate Conclusion Normal left ventricular wall thickness and chamber size. Estimated ejection fraction is 60%. There are no segmental wall motion abnormalities Normal right ventricular size and function There is no chamber enlargement The aortic valve is probably trileaflet. It is mildly thickened; there is trace aortic regurgitation . There is no aortic stenosis Structurally normal mitral and tricuspid valves. Mild tricuspid regurgitation. Trace to mild mitral regurgitation Pulmonic valve is structurally normal The ascending aorta is dilated measuring 4.4 cm Wall motion Left Ventricle The left ventricle is normal size. The left ventricular systolic function is normal. The left ventric ular ejection fraction is within the normal range. There is normal left ventricular wall thickness. T here is no ventricular septal defect visualized. LVEF is 60%. Right Ventricle The right ventricle is normal size. The right ventricular systolic function is normal. The RVSP is 19 .9mmHg. Atria The left atrium size is normal. The right atrium size is normal. The interatrial septum is intact wit h no evidence for an atrial septal defect. Aortic Valve The aortic valve is normal in structure. There is no aortic valvular stenosis. Trivial aortic regurgi tation. Mitral Valve The mitral valve is normal in structure. No evidence of mitral valve stenosis. Trace to mild mitral r egurgitation. Tricuspid Valve The tricuspid valve is normal in structure. There is no tricuspid valve stenosis. Mild tricuspid regu rgitation. Pulmonic Valve The pulmonary valve is normal in structure. There is no pulmonic valvular stenosis. There is no pulmo miguel valvular regurgitation. Great Vessels The aortic root is normal in size. The ascending aorta is dilated.4.4 cm Aortic arch is normal in booker iber. IVC is normal in size and collapses >50% with inspiration. Pericardium There is no pericardial effusion. 2D Dimensions IVSD d PLAX 0.65 cm F: 0.6-1.0 LV Vol A2C d MOD 97.6 mL LVPW d PLAX 0.73 cm F: 0.6 - 1.0 LV Vol A4C d MOD 113.8 mL LVID d PLAX 4.62 cm F: 3.8 - 5.2 LA vol/ BSA A2C s A-L 16.7 mL/m2 LVDs 3.10 cm F: 2.2 - 3.5 LA vol/ BSA A4C s A-L 22.6 mL/m2 Ao Root d 3.39 cm F: 2.7 - 3.3 LA Vol/ BSA Biplane s A-L 20.5 mL/m2 RA Area A4C 13.10 cm2 LA Area A4C s MOD 16.81 cm2 RA Vol/ BSA A4C s A-L 16.1 mL/m2 LA Area A2C s MOD 13.68 cm2 Ao Asc Diam d 4.44 cm F: 2.3 - 3.1 LV EF A4C MOD 57.6 % LV EF Teichholz 61.0 % LV EF A2C MOD 59.9 % LVEF (Medley's) 58.70 % F: 54 - 74 LV EF Biplane MOD 58.7 % LV Volume 80.11 mL F: 46 - 106 SV 63.95 mL LV Volume Index 37.78 mL/m2 F: 29 - 61 SV Index 30.10 mL/m2 LV Vol Biplane MOD 108.9 mL FS 32.55 % M-Mode TAPSE 2.13 cm (M/F) >1.7 LV Diastology MV E' medial 0.095 (>0.07 m/s) E/A Ratio 1.5 LV E/e MED 8.65 (<14) MV E Vmax 0.82 (0.4-1.3 m/s) MV E' lateral 0.110 (>0.1 m/s) MV A Vmax 0.55 (0.4-1.3 m/s) LV E/e LAT 7.50 (<14) MV E/A Ratio 1.48 MV E/E' medial 8.69 MV E/E' lateral 7.53 Aortic Valve LVOT Area 3.23 cm2 AoV Area Vmax 2.27 cm2 LVOT Vmax 1.29 m/s AoV Area/ BSA (Vmax) 1.07 cm2/m2 LVOT Mean Shahram. 0.84 m/s CLIFF Mean Shahram. 1.92 cm2 LVOT Peak Grad 6.6 mmHg CLIFF Mean Shahram. Index 0.90 cm2/m2 LVOT Mean Grad 3.3 mmHg LVOT VTI 0.313 m LVOT Diam s 2.00 cm AoV Vmax 1.83 m/s Velocity Ratio 0.70 AoV Mean Shahram. 1.41 m/s AoV Peak Grad 13.4 mmHg LVOT SV 100.94 mL AoV Mean Grad 8.4 mmHg AoV VTI 0.421 m AoV Area VTI 2.40 cm2 AoV Area/ BSA (VTI) 1.13 cm/m2 Mitral Valve MV DT 153 (160-240 msec) MV PHT 44 msec MV Area PHT 4.95 cm2 Pulmonary Valve PV Vmax 0.81 (0.5-1.5 m/s) RVOT Peak Gr. 1.92 mmHg PV Peak Grad 2.6 mmHg RVOT Mean Gr. 1.00 mmHg PV Mean Grad 1.4 mmHg RVOT VTI 0.172 m PV VTI 0.192 m RVOT Vmax 0.69 m/s Tricuspid Valve TR Peak Grad 16.9 mmHg TR Vmax 2.06 m/s RA Pressure 3.00 mmHg RVSP (TR) 19.9 mmHg
== END 2020-03-31 00:38 ==
PROVIDERS: PCP Physician Assistant; Visit Provider Internal Medicine Cardiovascular Disease
DX: I35.1 Nonrheumatic aortic (valve) insufficiency (principal); I36.1 Nonrheumatic tricuspid (valve) insufficiency; I10 Essential (primary) hypertension
CPT/HCPCS: 93306

== ENCOUNTER 2020-09-28 15:10 | Outpatient (REF) | payer MEDICAID, SELFPAY ==
[2020-09-28 13:37] LABS: HCT 39.7 % (36.0-46.0); HGB 13.4 g/dL (11.2-15.7); MCHC 33.8 % (32.0-36.0); MCV 88.8 fL (80-95); Platelet Count 223 10^3/uL (130-400); RBC 4.47 10^6/uL (3.93-5.22); RDW 12.2 % (11.7-14.6); RDW-SD 39.4 fL; WBC 7.97 10^3/uL (4.4-10.8)
[2020-09-28 14:15] LABS: ALT 35 U/L (14-59); AST 26 U/L (15-37); Alkaline Phosphatase 67 U/L (46-116); Anion Gap 8.9 mmol/L (3-11); BUN 29 mg/dL (7-18); Bilirubin, Total 0.4 mg/dL (0.2-1.0); CO2 27.1 mmol/L (21.0-32.0); CREATININE 1.47 mg/dL (0.55-1.02); Calcium 9.4 mg/dL (8.5-10.1); Calculated LDL 108 mg/dL (<100); Chloride 106 mmol/L (98-107); Cholesterol 192 mg/dL (<200); Estimated GFR 36.26 (mL/min/1.73m2); Glucose 127 mg/dL (74-106); HDL Cholesterol 54 mg/dL (40-60); Potassium 4.3 mmol/L (3.5-5.1); Sodium 142 mmol/L (136-145); Total Protein 7.4 g/dL (6.4-8.2); Triglyceride 151 mg/dL (<150)
[2020-09-28 14:26] LABS: Uric Acid 9.6 mg/dL (2.6-6.0)
[2020-09-28 14:37] LABS: Hemoglobin A1C 6.6 % (<5.7)
[2020-09-28 14:56] LABS: COMMENT (LAB VIEW ONLY) 160.88 mg/dL; Microalb ug/mg Crea 5.4 ug/mg Cr
== END 2020-09-28 15:30 ==
LOC: NCHCN 15:10
PROVIDERS: PCP Physician Assistant; Visit Provider Physician Assistant
DX: E11.9 Type 2 diabetes mellitus without complications (principal); I10 Essential (primary) hypertension; I48.0 Paroxysmal atrial fibrillation; M10.9 Gout, unspecified
CPT/HCPCS: 80053; 80061; 85027; 82043; 82570; 83036; 84550

== ENCOUNTER 2021-01-20 02:44 | Outpatient (CLI) | payer MEDICAID, SELFPAY ==
[2021-01-20 10:34] LABS: Source Nasal/Nares
[2021-01-20 22:33] LABS: COVID-19 PCR Negative (Negative)
== END 2021-01-20 02:45 | disposition home or self-care (01) ==
LOC: LBO 02:44
PROVIDERS: PCP Physician Assistant; Visit Provider Internal Medicine Sleep Medicine
DX: Z20.822 Contact with and (suspected) exposure to COVID-19 (principal); Z01.818 Encounter for other preprocedural examination
CPT/HCPCS: 87635

== ENCOUNTER 2021-07-13 11:59 | Outpatient (CLI) | payer MEDICAID, SELFPAY ==
--- NOTE | 2021-07-13 11:45 | RT.EKG_ITS ---
APPROVED REPORT Exam: Resting ECG Reason for Exam: Blood Pressure is high Patient Location: O HR:47 bpm ECG Measurements Heart Rate 47 AXIS VT 142 P 16 QRSd 98 QRS 33 QT 476 T 12 QTc 422 Conclusion Sinus bradycardia...rate< [address] depression, anterolateral leads...ST <-0.07mV, I aVL V2-V6
== END 2021-07-13 12:00 | disposition home or self-care (01) ==
LOC: DI.CM 12:00
PROVIDERS: PCP Physician Assistant; Visit Provider Nurse Practitioner Family
DX: R07.89 Other chest pain (principal)
CPT/HCPCS: 93010

== ENCOUNTER 2021-07-13 12:52 | Emergency (ER) | payer MEDICAID, SELFPAY ==
[2021-07-13] VITALS (19 sets, daily range): BP systolic 202–235; BP diastolic 75–135; PULSE 42–52; RESP 13–25; TEMP 36.6; O2SAT 96–99
--- NOTE | 2021-07-13 13:45 | RT.EKG_ITS ---
APPROVED REPORT Exam: Resting ECG Reason for Exam: abnl ekg, htn Patient Location: E HR:47 bpm ECG Measurements Heart Rate 47 AXIS DE 140 P -2 QRSd 96 QRS 18 QT 475 T 0 QTc 422 Conclusion Sinus bradycardia...rate< 60
[2021-07-13 14:22] LABS: Abs Immature Grans 0.03 10^3/uL (0.0-0.06); Absolute Basophil Count 0.06 10^3/uL (0.0-0.2); Absolute Eosinophil Count 0.16 10^3/uL (0.0-0.7); Absolute Lymphocyte Count 2.58 10^3/uL (1.2-3.4); Absolute Neutrophil Count 4.81 10^3/uL (1.2-6.7); Basophils % 0.7; HCT 41.6 % (36.0-46.0); HGB 13.7 g/dL (11.2-15.7); Immature Grans % 0.4; Lymphocytes % 31.7; MCH 29.7 pg (27.0-33.0); MCHC 32.9 % (32.0-36.0); MPV 11.2 fL (8.0-11.0); Monocytes % 6.1; Neutrophils % 59.1; Nucleated RBC 0 %; Platelet Count 236 10^3/uL (130-400); RBC 4.62 10^6/uL (3.93-5.22); RDW 12.9 % (11.7-14.6); RDW-SD 42.5 fL; WBC 8.14 10^3/uL (4.4-10.8)
[2021-07-13 14:52] LABS: ALT 27 U/L (14-59); AST 26 U/L (15-37); Albumin 3.8 g/dL (3.4-5.0); Alkaline Phosphatase 75 U/L (46-116); Anion Gap 10.8 mmol/L (3-11); BUN 15 mg/dL (7-18); Bilirubin, Total 0.4 mg/dL (0.2-1.0); CO2 27.2 mmol/L (21.0-32.0); CREATININE 1.1 mg/dL (0.55-1.02); Calcium 8.8 mg/dL (8.5-10.1); Chloride 106 mmol/L (98-107); Glucose 109 mg/dL (74-106); Potassium 3.7 mmol/L (3.5-5.1); Sodium 144 mmol/L (136-145); Total Protein 7.9 g/dL (6.4-8.2)
[2021-07-13 14:57] LABS: Troponin I < 0.05 ng/mL (<0.06)
--- NOTE | 2021-07-13 15:04 | NUR.NOTE ---
Ambulates to restroom with steady gait.Nursing Note:
--- NOTE | 2021-07-13 15:34 | ED.GENADUL_ITS ---
Discharge Plan Disposition Patient Disposition: HOME Condition: Stable Discharge Details Clinical Impression: Elevated blood pressure reading Primary Care Provider: Vadim Ayala ED Provider: Sarah Mota Home Meds and New Rx's Prescriptions: Continued aspirin [Adult Low Dose Aspirin] 81 mg tablet,delayed release (DR/EC) 81 mg PO DAILY RF: 0 bisoprolol fumarate 5 mg tablet 5 mg PO DAILY RF: 0 metformin 500 mg tablet 500 mg PO BID RF: 0 aspirin 325 mg tablet 325 mg PO DAILY RF: 0 Cholestyramine Light 4 gram powder 4 gm PO BID RF: 0 lisinopril 20 MG tablet 20 mg PO DAILY Qty: 30 RF: 0 indomethacin 75 mg capsule, extended release 75 mg PO DAILY PRNRF: 0 pantoprazole 20 mg tablet,delayed release (DR/EC) 20 mg PO DAILY RF: 0 acetaminophen [Mapap Extra Strength] 500 MG tablet 500 mg PO PRN PRN (Reason: Pain) RF: 0 allopurinol 100 mg tablet 100 mg PO DAILY RF: 0 Discharge Instructions Additional Instructions: Please follow-up with your primary care physician double your lisinopril talk to your doctor about your bisoprolol as your heart rate is very low do not discontinue this medication and talk to your doctor please return for chest pain, shortness of breath, headache, or should you have new or worsening complaints if you feel weak or lightheaded, you should her blood pressure, you may go to your local pharmacy Referrals: Vadim Ayala [Primary Care Provider] - Discharge Data Discharge Date/Time-TO BE ENTERED AT DEPARTURE: 07/13/21 15:49 Medical Decision Making This 60-year-old female appears well, she is relatively asymptomatic, her blood pressure is elevated, but this is in part situational episode her third visit for blood pressure today She is not having any evidence of hypertensive emergency and blood work, repeat EKG, and troponin are negative We will increase her lisinopril to 40 and she will follow up with her tomorrow She is given low threshold to return should she have new or worsening complaints and she is discharged home with a nonfocal neurological exam, alert, oriented, of decisional capacity Medical Records Medical records reviewed: Yes I reviewed the patient's medical records. Lab Data Lab results reviewed: Yes I reviewed the patient's lab results. ECG Data Attestation: I personally reviewed and interpreted this ECG (s) as follows: HPI General Mode of arrival: ambulatory . Date/Time Provider Initiated Documentation: 07/13/21 13:30 . Limitations to Documentation: no limitations . Information obtained by: patient . HPI Narrative: This 60-year-old female with history of hypertension, GERD, diverticulitis presents with report of elevated blood pressure which was an incidental finding at dentist just prior to arrival. She was evaluated at [facility] and given EKG changes and elevated blood pressure, she was sent to the emergency room for further evaluation. Patient is currently asymptomatic. She denies any chest pain, shortness of breath, headache, dizziness, weakness, vision change. She did take her antihypertensives prior to arrival. She denies any change in diet or medication. She denies any recent stressors. She has been taking her antihypertensives regularly. Related Data Home Medications Medication Instructions Recorded Confirmed lisinopril 20 mg PO DAILY #30 tab-cap 04/18/15 07/13/21 acetaminophen [Mapap Extra 500 mg PO PRN PRN 05/31/15 07/13/21 Strength] aspirin 325 mg tablet 325 mg PO DAILY 07/21/18 07/13/21 cholestyramine-aspartame 4 gram 4 gm PO BID gm 07/21/18 07/13/21 oral powder metformin 500 mg tablet 500 mg PO BID 07/21/18 07/13/21 indomethacin 75 mg 75 mg PO DAILY PRN 10/21/20 07/13/21 capsule,extended release pantoprazole 20 mg tablet,delayed 20 mg PO DAILY 10/21/20 07/13/21 release allopurinol 100 mg PO DAILY 07/13/21 07/13/21 aspirin 81 mg tablet,delayed 81 mg PO DAILY 07/13/21 07/13/21 release bisoprolol fumarate 5 mg tablet 5 mg PO DAILY 07/13/21 07/13/21 Allergies Allergy/AdvReac Type Severity Reaction Status Date / Time No Known Allergies Allergy Verified 07/13/21 13:10 General Stated Complaint: GenMedical MARIO: 3 Review of Systems All systems reviewed & are unremarkable except as noted in HPI and below PFSH Medical History (Updated 07/13/21 @ 15:37 by MARKY Natarajan) Chronic back pain Diverticulitis GERD (gastroesophageal reflux disease) Hypertension Migraines Surgical History Cholecystectomy (06/01/15) DR.TERRY CHONG Social History Smoking/Tobacco Use Status: Former Tobacco Use Smoking risk assessment performed?: Yes Alcohol Intake: former Drug use: Never Substance use type: does not use Do you feel safe at home: Yes Do you feel safe in your relationship?: Yes Exam Const General: cooperative, comfortable and no acute distress HENMT Face and sinus: normal facial exam Mouth: oral mucosae normal Throat: uvula midline Eyes Pupils: PERRL Resp Effort & Inspection: normal respiratory effort Auscultation: clear to auscultation bilaterally Cardio Rate: regular rate Rhythm: regular rhythm GI Inspection: normal to inspection Other: Nontender abdominal exam Skin General skin exam: no rashes or lesions noted Neuro General: patient alert and patient oriented x3 Cranial Nerves: CN's II-XI intact bilaterally Extrem Other: No peripheral edema Course Vital Signs Vital signs: Vital Signs Temperature 36.6 C 07/13/21 13:05 Pulse 51 L 07/13/21 13:05 Respiratory Rate 16 07/13/21 13:05 Blood Pressure 235/135 H 07/13/21 13:05 Pulse Oximetry 98 07/13/21 13:05 Temperature 36.6 C 07/13/21 13:05 Temperature Source Skin 07/13/21 13:05 Pulse 46 L 07/13/21 15:09 Pulse 47 L 07/13/21 15:09 Respiratory Rate 23 07/13/21 15:09 Respiratory Effort Non-Labored 07/13/21 13:37 Respiratory Depth Normal 07/13/21 13:37 Respiratory Pattern Normal 07/13/21 13:37 Blood Pressure 202/75 H 07/13/21 15:09 Blood Pressure Mean 110 07/13/21 15:09 Blood Pressure Position Sitting 07/13/21 13:05 Pulse Oximetry 98 07/13/21 15:09 Oxygen Delivery Method Room Air 07/13/21 13:05 Oxygen Flow Rate 0 07/13/21 13:05 Pain Level 0 07/13/21 13:05 Lab/Test Results Lab/Test Results: Laboratory Tests Range/Units 07/13/21 07/13/21 14:15 14:15 WBC (4.4-10.8) 10^3/uL 8.14 RBC (3.93-5.22) 10^6/uL 4.62 Hgb (11.2-15.7) g/dL 13.7 Hct (36.0-46.0) % 41.6 MCV (80-95) fL 90.0 MCH (27.0-33.0) pg 29.7 MCHC (32.0-36.0) % 32.9 RDW (11.7-14.6) % 12.9 Plt Count (130-400) 10^3/uL 236 MPV (8.0-11.0) fL 11.2 H Immature Gran % 0.4 Neutrophils % 59.1 Lymphocytes % 31.7 Monocytes % 6.1 Eosinophils % 2.0 Basophils % 0.7 Nucleated RBC % % 0 Absolute Neutrophils (1.2-6.7) 10^3/uL 4.81 Absolute Lymphocytes (1.2-3.4) 10^3/uL 2.58 Absolute Monocytes (0.1-0.8) 10^3/uL 0.50 Absolute Eosinophils (0.0-0.7) 10^3/uL 0.16 Absolute Basophils (0.0-0.2) 10^3/uL 0.06 Sodium (136-145) mmol/L 144 Potassium (3.5-5.1) mmol/L 3.7 Chloride (98-107) mmol/L 106 Carbon Dioxide (21.0-32.0) mmol/L 27.2 Anion Gap (3-11) mmol/L 10.8 BUN (7-18) mg/dL 15 Creatinine (0.55-1.02) mg/dL 1.1 H Estimated GFR/1.73 m2 (mL/min/1.73m2) 50.50 Glucose (74-106) mg/dL 109 H Calcium (8.5-10.1) mg/dL 8.8 Total Bilirubin (0.2-1.0) mg/dL 0.4 AST (15-37) U/L 26 ALT (14-59) U/L 27 Alkaline Phosphatase (46-116) U/L 75 Troponin I (<0.06) ng/mL < 0.05 Total Protein (6.4-8.2) g/dL 7.9 Albumin (3.4-5.0) g/dL 3.8
--- NOTE | 2021-07-13 17:56 | NUR.NOTE ---
Nursing Note: Referral faxed to [facility] for hypertension, early next week. Remedios Luna
== END 2021-07-13 15:49 | disposition home or self-care (01) ==
PROVIDERS: Emergency Provider Physician Assistant; PCP Physician Assistant
DX: I10 Essential (primary) hypertension (principal)
CPT/HCPCS: 36415; 80053; 93005; 99283; 84484; 85025; 93010

== ENCOUNTER 2021-08-29 00:31 | Outpatient (CLI) | payer MEDICAID, SELFPAY ==
--- NOTE | 2021-08-29 13:06 | DI.RAD_ITS ---
Exam(s) XR KNEE RT 3V AP,LAT,BOOKER EXAM: XR KNEE RT 3V AP,LAT,BOOKER CLINICAL HISTORY: RT KNEE JOINT PAIN > 3 MONTHS M25.561, CHRONIC RT KNEE PAIN. TECHNIQUE: 2D digital imaging was performed of the right knee. Three views obtained. AP, lateral an d PA tunnel views were obtained. COMPARISON: CR RIGHT KNEE 3 VIEWS from 03/04/2015 CR RIGHT KNEE 3 VIEWS from 03/04/2015 FINDINGS: BONES: No acute fracture is present. No bony destructive lesion is seen. There are enthesophytes at t he superior and inferior patella. Dystrophic calcifications are seen adjacent to the lateral femoral condyle which may reflect prior injury. JOINTS: The knee is normally aligned. No joint effusion is seen. SOFT TISSUE: Normal. IMPRESSION: No acute abnormality. If there is concern for internal derangement, MRI may be obtained. DATA REPOSITORY: RADIATION DOSE DELIVERED:
== END 2021-08-29 00:51 ==
PROVIDERS: PCP Physician Assistant; Visit Provider Physician Assistant
DX: M25.561 Pain in right knee (principal); M25.761 Osteophyte, right knee; M85.861 Other specified disorders of bone density and structure, right lower leg
CPT/HCPCS: 73562

== ENCOUNTER 2021-08-29 17:48 | Outpatient (REF) | payer MEDICAID, SELFPAY ==
[2021-08-29 20:12] LABS: Anion Gap 11.6 mmol/L (3-11); BUN 20 mg/dL (7-18); CO2 25.4 mmol/L (21.0-32.0); CREATININE 1.2 mg/dL (0.55-1.02); Calcium 9.5 mg/dL (8.5-10.1); Chloride 104 mmol/L (98-107); Estimated GFR 45.67 (mL/min/1.73m2); Glucose 136 mg/dL (74-106); Potassium 4.1 mmol/L (3.5-5.1); Sodium 141 mmol/L (136-145)
[2021-08-29 20:20] LABS: Hemoglobin A1C 7.1 % (<5.7)
== END 2021-08-29 17:49 | disposition home or self-care (01) ==
LOC: NCHCN 17:48
PROVIDERS: PCP Physician Assistant; Visit Provider Physician Assistant
DX: I10 Essential (primary) hypertension (principal); E11.9 Type 2 diabetes mellitus without complications
CPT/HCPCS: 80048; 83036

== ENCOUNTER 2022-03-07 17:00 | Outpatient (REF) | payer MEDICAID, SELFPAY ==
--- NOTE | 2022-03-07 15:30 | PAPFT_PTH ---
PATIENT: Yevgeniy Stauffer V LOC: [facility] U#:[id number] AGE/SX: 61/F ROOM: RE03/07/[address]: Vadim Ayala : 1960 BED: DIS: 03/07/2022 SPEC #: [id number] RECD: 03/08/22 12:24 STATUS: MARLENE RETatianna #: [id number] ISABEL: 03/07/22 15:[address]: Vadim Ayala DEPT: [facility] Cytology RECD BY: Sarah Belcher Tissues: 1 - CX/ENDOCX FOR PAP SMEARS Procedures: PAP THIN PREP/[facility] Screening HPV DNA PROBE Comments: [id number]
== END 2022-03-07 17:01 | disposition home or self-care (01) ==
LOC: NCHCN 17:00
PROVIDERS: PCP Physician Assistant; Visit Provider Physician Assistant
DX: Z12.4 Encounter for screening for malignant neoplasm of cervix (principal); Z11.51 Encounter for screening for human papillomavirus (HPV)
CPT/HCPCS: 88142; 87624

== ENCOUNTER → 2022-04-06 00:50 | Outpatient (CLI) | payer MEDICAID, SELFPAY ==
--- OUTSIDE RECORDS SUMMARY | 2022-04-06 00:51 | XMS_ITS | Encounter Summary ---
:1960 Author Organization [facility] Address [address] [place] [address] Care Team Providers Name Role Phone Unknown, Provider Primary Care Provider Ad Gonzalez MD Primary Care Provider Encounter Details Date Type Department Care Team Description 08/28/2001 Hospital Encounter [facility] - Ra pedro Garcia MD Maple conversion [address] [facility] [address] [place] [address] [facility] [phone] NEL[place] ZULETA [phone] (Wo rk) Social History Tobacco Use Types Packs/Day Years Used Date Never Assessed Sex Assigned at Date Recorded Not on file documented as of this encounter Plan of Treatment Not on filedocumented as of this encounter Procedures Procedure Name Priority Date/Time Associated Diagnosis Comme nts L SPINE 2-3 VIEWS Routine 08/28/2001 12:23 Result s for this EST procedure are i n the results section. documented in this encounter Results L SPINE 2-3 VIEWS (08/28/2001 12:23 EST) Anatomical Region Laterality Modality Other Specimen Impressions [facility] - 08/12/2009 0: 46 EST IMPRESSION: Mild degenerative changes of the lumbar spine. No evidence of instability. dw Narrative [facility] - 08/12/2009 0: 46 EST LBP, RT ANT THIGH NUMBNESS. R/O LUMBAR DDD/ SPONDYLOSIS. DOI: . LUMBAR SPINE: 08/28/01 Lateral views of the lumbar spine includ ing flexion/extension views were obtained. There are no comparisons. Lumbar vertebral body heights, disc spac ing, and posterior alignment are maintained. There is no evidence of instability. The calcific densities projected over th e T12-L1 disc space may be within the annulus or nucleus. Disc spaces are maintained. Mild anterio r bony proliferative changes are seen. Procedure Note Santy Kidd, PT - 08/12/2009 LBP, RT ANT THIGH NUMBNESS. R/O LUMBAR DDD/ SPONDYLOSIS. DOI: . LUMBAR SPINE: 08/28/01 Lateral views of the lumbar spine includ ing flexion/extension views were obtained. There are no comparisons. Lumbar vertebral body heights, disc spac ing, and posterior alignment are maintained. There is no evidence of instability. The calcific densities projected over th e T12-L1 disc space may be within the annulus or nucleus. Disc spaces are maintained. Mild anterio r bony proliferative changes are seen. IMPRESSION IMPRESSION: Mild degenerative changes of the lumbar spine. No evidence of instability. dw Performing Organization Address City/State/ZIP Code Phon e Number [facility] [address] [facility][Note 3] T [address] [facility] [address] [place], [place] [address] documented in this encounter Visit Diagnoses Not on filedocumented in this encounter Care Teams Central Supply Manager Relationship Specialty Start Date End Date Unknown, MD Siva PCP - General 04/19/15 06/06/15 Ad Gonzalez MD PCP - General 06/07/15 documented as of this encounter
--- OUTSIDE RECORDS SUMMARY | 2022-04-06 00:51 | XMS_ITS | Clinical Summary ---
:1960 Author Organization [facility] Address [address] [place] [address] Care Team Providers Name Role Phone Ad Gonzalez MD Primary Care Provider Encounters Date Type Specialty Care Team Description 03/09/2022 Lab Requisition Clinical Laboratory Angelina Ayala for general adult medical examination without abnormal findings; Vadim Cowan RPA Encounter for screening for malignant neoplasm of cervix; Encounter for s creening for human papillomavirus (HPV) from Last 3 Months Social History Tobacco Use Types Packs/Day Years Used Date Never Assessed Sex Assigned at Date Recorded Not on file Plan of Treatment Health Maintenance Due Date Last Done Comments Hepatitis C Screen 1960 COVID-19 Vaccine (#1) 11/29/1964 Procedures Procedure Name Priority Date/Time Associated Diagnosis Comme nts PAP TEST Today 03/07/2022 15:30 Encounter for general Re sults for this EDT adult medical procedure are in examination without the resu lts abnormal finding s section. Encounter for screening for malignant neoplasm of cervix Encounter for screening for human papillomavirus (HPV) HUMAN PAPILLOMAVIRUS Today 03/07/2022 15:30 Encounter for ge neral Results for this (HPV) DETECTION-HIGH EDT adult medical proced ure are in RISK TYPES examination without the resu lts abnormal finding s section. Encounter for screening for malignant neoplasm of cervix Encounter for screening for human papillomavirus (HPV) from Last 3 Months Results PAP TEST (03/07/2022 15:30 EDT) Specimens A. Cervix and/or [facility] Endocervix , ThinPrep CENTER Imaging System with LABORATORY Manual Evaluation SERVICES Specimen Adequacy Satisfactory for Evaluation - transformation zone component present [facility] Scant squamous epithelial component, con tamination present, possibly lubricant CENTER LABORATORY SERVICES General Negative for [facility] Categorization intraepithelial CENTER lesion or malignancy LABORATORY SERVICES Attestation . [facility] Electronically CENTER signed by VANNESSA Aleman CT(ASCP ) on SERVICES 03/17/2022 at 09 58 Clinical History SEE BELOW [facility] SERVICES HPV The result for the Human Pap illomavirus (HPV) Detection-High Risk Types is Negative. No E6 or E7 mRNA is detected from HPV types 16,18,31,33,35,39,45,51,52,56,58,59,66, and 68 by filler shredder machine mediated [facility] amplification.Testing was pe rformed on specimen [id number] and was resulted on 03/17/2022 0945 EDT by JAYE, LAB INSTRUMENT RESULTS IN [facility] LABORATORY SERVICES Performing Lab [facility] SERVICES Scanned Images [facility] SERVICES Specimen Pap Test - Cervix and/or Endocervix Performing Organization Address City/State/ZIP Code Phon e Number [facility] [address] [place] [address] SERVICES HUMAN PAPILLOMAVIRUS (HPV) DETECTION-HIGH RISK TYPES (03/07/2022 15:30 EDT) Human Papillomavirus NegativeComment: No Negative [facility] (HPV) Detection-High E6 or E7 mRNA is CENTER LABORATOR Y Types detected from HPV SERVICES types 16,18,31,33,35,39,45 ,51,52,56,58,59,66, and 68 by filler shredder machine mediated amplification. Specimen Pap Test - Cervix and/or Endocervix Performing Organization Address City/State/ZIP [facility] Phon e Number [facility] [address] [place] [address] SERVICES from Last 3 Months Care Teams Manager Transition Relationship Specialty Start Date End Date Ad Gonzalez MD PCP - General 06/07/15
--- OUTSIDE RECORDS SUMMARY | 2022-04-06 00:51 | XMS_ITS | Encounter Summary ---
:1960 Author Organization [facility] Address [address] [place] [address] Care Team Providers Name Role Phone Unavailable Primary Care Provider Unavailable Encounter Details Date Type Department Care Team Description 12/30/2001 Hospital Encounter [facility] - Giacomo Carrero conversion III, ANP [address] [place] [address] [place], [place] [phone] (Wo rk) Social History Tobacco Use Types Packs/Day Years Used Date Never Assessed Sex Assigned at Date Recorded Not on file documented as of this encounter Discharge Disposition Disposition Code Departure Means Destination Auto Discharge documented in this encounter Plan of Treatment Not on filedocumented as of this encounter Procedures Procedure Name Priority Date/Time Associated Diagnosis Comme nts SHOULDER 2 OR MORE Routine 12/30/2001 15:06 Resul ts for this VIEWS EDT procedure are i n the results section. documented in this encounter Results SHOULDER 2 OR MORE VIEWS (12/30/2001 15:06 EDT) Anatomical Region Laterality Modality Other Specimen Narrative [facility] - 07/06/2009 3: 09 EDT RT SAMIRA PAIN X2 YRS R/O OA RIGHT SHOULDER: 12/30/01. Internally externally rotated, scapular- Y, and axillary views of the right shoulder were obtained. FINDINGS: Glenohumeral alignment and glenohumeral joint spacing are preserved. There is a tiny osteophyte associated wi th the inferomedial aspect of the humeral head. There is no evidence o f fracture. There is acromioclavicular joint space loss and m ild arthropathy. There is a type 2 acromion. There is a tiny ossific fragment slightl y displaced from the medial aspect of the proximal coracoid, which m ay represent an old traumatic injury. /tns Procedure Note Santy Kidd, PT - 07/06/2009 RT SAMIRA PAIN X2 YRS R/O OA RIGHT SHOULDER: 12/30/01. Internally externally rotated, scapular- Y, and axillary views of the right shoulder were obtained. FINDINGS: Glenohumeral alignment and glenohumeral joint spacing are preserved. There is a tiny osteophyte associated wi th the inferomedial aspect of the humeral head. There is no evidence o f fracture. There is acromioclavicular joint space loss and m ild arthropathy. There is a type 2 acromion. There is a tiny ossific fragment slightl y displaced from the medial aspect of the proximal coracoid, which m ay represent an old traumatic injury. /tns Performing Organization Address City/State/ZIP Code Phon e Number [facility] [address] [facility] [address] [address] [facility] [address] [place], [place] [address] documented in this encounter Visit Diagnoses Not on filedocumented in this encounter
--- OUTSIDE RECORDS SUMMARY | 2022-04-06 00:51 | XMS_ITS | Encounter Summary ---
:1960 Author Organization [facility] Address [address] [place] [address] Care Team Providers Name Role Phone Unknown, Provider Primary Care Provider Encounter Details Date Type Department Care Team Description 04/18/2015 Results Only [facility]- Sukh Umanzor MD [phone] [place] [address] Social History Tobacco Use Types Packs/Day Years Used Date Never Assessed Sex Assigned at Date Recorded Not on file documented as of this encounter Plan of Treatment Not on filedocumented as of this encounter Procedures Procedure Name Priority Date/Time Associated Diagnosis Comme nts SURGICAL PATHOLOGY Routine 04/18/2015 9:03 EDT Re sults for this procedure are i n the results section. PAP TEST- RESULT Routine 04/18/2015 0:00 EDT Resu lts for this ONLY procedure are i n the results section. documented in this encounter Results SURGICAL PATHOLOGY (04/18/2015 9:03 EDT) Pathology Report: SURGICAL PATHOLOGY REPORT [facility] Reports generated via electronic interface contain nicolas ginal data; LABORATORY however they are lacking the format of the original re port. SERVICES Caution should be taken when reading/interpreting unfo rmatted reports. Name: ? YEVGENIY KNOTT V ? Accession #: ? [id number] ? : ? 1960 (Age: 54 ) ??F ? Collect Date: ? 04/18/2015 ? Location: ? [facility] ? Receive Date: ? 04/18/20 15 ? Provider: SUKH MCDONALD MD Copy to: BERNARDO ASHRAF MD ? Final Pathologic Diagnosis: ENDOMETRIUM: BIOPSY: - ??Small fragments of inact jermaine to atrophic endometrial glandular epithelium with focal tubal metaplasia. - ??Minute fragments of endocervical glandular epithel ium. - ??Minute fragment of metaplastic squamous epithelium . Document reviewed and electronically signed by: Renan Rios MD Report ??Date: 04/20/2015 12:20 By the signature above, the attending physician certif ies that he/she has personally conducted a gross and/or microscopic examin ation of the described specimens and rendered or confirmed the above diagnosi s. Specimen(s) Received: Endometrial bx Clinical History: Hx of very infrequent menses; irreg bleeding Gross Description: ? Received in formalin labelled with proper patient identification (initials P, R) and endometrium is a n aggregate of blood tinged mucinous material (2.5 x 1.0 x 0.8 cm). Submitted in toto in blocks 1 and 2. Juli Gamboa 04/19/2015 10:50 AM End of Report Specimen Performing Organization Address City/State/ZIP Code Phon e Number [facility] [address] [place] [address] SERVICES PAP TEST- RESULT ONLY (04/18/2015 0:00 EDT) Pathology Report: CYTOPATHOLOGY REPORT [facility] Reports generated via electronic interface contain nicolas ginal data; SERVICES however they are lacking the format of the original re port. Caution should be taken when reading/interpreting unfo rmatted reports. Name: ? POND, YEVGENIY V ? Accession #: ? [id number] ? : ? 1960 (Age: 54 ) ??F ?Collect Date: ? 04/18/2015 ? Location: ? [facility] ? Receive Date: ? 04/19/20 15 ? Provider: SUKH MCDONALD MD Copy to: BERNARDO ASHRAF MD ? Final Report SPECIMEN ADEQUACY ? Satisfactory for Evaluation - transformation zone component present GENERAL CATEGORIZATION ? Negative for Intraepithelial Lesion or Malignan cy INTERPRETATION ? Reactive cellular angela nges associated with inflammation present (includes repair). Other: Additional clinical information: last pap in Specimen/Source: ??Pap Test, Cervix/Endocervix, ThinPr ep Imaging System with manual evaluation Document reviewed and electronically signed by: ? PRADIP SOUSA MD ? Report ??Date: 04/27/2015 08:09 HPV with Pap Test ? Date Ordered: ? 04/26/2015 ? Status: ?? S igned Out ?Date Complete: ? 04/29/2015 ? By: ??Sys tem Interface ? Date Reported: ? 04/29/2015 ? Interpretation RESULT: Negative for HPV. No E6 or E7 mRNA is detected from HPV types 16,18,31,3 3,35, 39,45,51,52,56,58,59,66, and 68 by diet consultant media kandy amplification. Comments Document reviewed and electronically signed by: ? System Interface ? Report date: 04/29/2015 By the signature above, the attending physician certif ies that he/she has personally conducted a gross and/or microscopic examin ation of the described specimens and rendered or confirmed the above diagnosi s. End of Report Specimen Performing Organization Address City/State/ZIP Code Phon e Number [facility] [address] [place] [address] SERVICES documented in this encounter Visit Diagnoses Not on filedocumented in this encounter Care Teams Casing Flusher Relationship Specialty Start Date End Date Unknown, Provider, PCP - General 04/19/15 06/06/15 documented as of this encounter
--- OUTSIDE RECORDS SUMMARY | 2022-04-06 00:51 | XMS_ITS | Encounter Summary ---
:1960 Author Organization [facility] Address [address] [place] [address] Care Team Providers Name Role Phone Unavailable Primary Care Provider Unavailable Encounter Details Date Type Department Care Team Description 04/18/2015 Hospital Encounter [facility] - S Unknown, Pro Nia phelps MD [address] [facility] [phone] [place] [address] (Work) [phone] Social History Tobacco Use Types Packs/Day Years Used Date Never Assessed Sex Assigned at Date Recorded Not on file documented as of this encounter Discharge Disposition Disposition Code Departure Means Destination Home or Self Senior Living documented in this encounter Plan of Treatment Not on filedocumented as of this encounter Visit Diagnoses Not on filedocumented in this encounter
--- OUTSIDE RECORDS SUMMARY | 2022-04-06 00:51 | XMS_ITS | Encounter Summary ---
:1960 Author Organization [facility] Address [address] [place] [address] Care Team Providers Name Role Phone Unknown, Provider Primary Care Provider Encounter Details Date Type Department Care Team Description 06/01/2015 Hospital Encounter [facility]- [place] Unknown, Provider, [facility] 0 [facility] [phone] [place] [address] (Work) [phone] Social History Tobacco Use Types Packs/Day Years Used Date Never Assessed Sex Assigned at Date Recorded Not on file documented as of this encounter Discharge Disposition Disposition Code Departure Means Destination Home or Self [place] documented in this encounter Plan of Treatment Not on filedocumented as of this encounter Visit Diagnoses Not on filedocumented in this encounter Care Teams Wood Flour Miller Relationship Specialty Start Date End Date Unknown, Provider, PCP - General 04/19/15 06/06/15 documented as of this encounter
--- OUTSIDE RECORDS SUMMARY | 2022-04-06 00:51 | XMS_ITS | Encounter Summary ---
:1960 Author Organization [facility] Address [address] [place] [address] Care Team Providers Name Role Phone Ad Gonzalez MD Primary Care Provider Encounter Details Date Type Department Care Team Description 03/09/2022 Lab Requisition [facility] Eliot Ayala for general adult medical examination without abnormal findings; Pathology & Vadim Cowan RPA Encounter for screening for malignant ne oplasm of cervix; Laboratory Medicine [address] for screening for human papillomavirus (HPV) - [facility] [address] [facility] [id number] Social History Tobacco Use Types Packs/Day Years [...] Encounter for screening for human papillomavirus (HPV) documented in this encounter Results HUMAN PAPILLOMAVIRUS (HPV) DETECTION-HIGH RISK TYPES (03/07/2022 15:30 EDT) Human Papillomavirus NegativeComment: No Negative UV MEDICAL (HPV) Detection-High E6 or E7 mRNA is CENTER LABORATOR Y Types detected from HPV SERVICES types 16,18,31,33,35,39,45 ,51,52,56,58,59,66, and 68 by finished cloth checker mediated amplification. Specimen Pap Test - Cervix and/or Endocervix Performing Organization Address City/[facility] Phon e Number [facility] [address] [place] [address] SERVICES PAP TEST (03/07/2022 15:30 EDT) Specimens A. Cervix and/or [facility] MEDICAL Endocervix , ThinPrep CENTER Imaging System with LABORATORY Manual Evaluation SERVICES Specimen Adequacy Satisfactory for Evaluation - transformation zone component present [facility] Scant squamous epithelial component, con tamination present, possibly lubricant CENTER LABORATORY SERVICES General Negative for [facility] Categorization intraepithelial CENTER lesion or malignancy LABORATORY SERVICES Attestation . [facility] Electronically CENTER signed by VANNESSA Aleman CT(ASCP ) on SERVICES 03/17/2022 at 09 58 Clinical History SEE BELOW [facility] SERVICES HPV The result for the Human Pap illomavirus (HPV) Detection-High Risk Types is Negative. No E6 or E7 mRNA is detected from HPV types 16,18,31,33,35,39,45,51,52,56,58,59,66, and 68 by finished cloth checker mediated [facility] MEDICAL amplification.Testing was pe rformed on specimen [id number] and was resulted on 03/17/2022 0945 EDT by JAYE, LAB INSTRUMENT RESULTS IN [facility] SERVICES Performing Lab [facility] SERVICES Scanned Images [facility] SERVICES Specimen Pap Test - Cervix and/or Endocervix Performing Organization Address City/[facility]/ZIP Code Phon e Number [facility] [address] [place] [address] SERVICES documented in this encounter Visit Diagnoses Diagnosis Encounter for general adult medical exam ination without abnormal findings Unspecified general medical examination Encounter for screening for malignant ne oplasm of cervix Screening for malignant neoplasm of the cervix Encounter for screening for human papill omavirus (HPV) Special screening examination for human papillomavirus (HPV) documented in this encounter Care Teams Senior Billing Consultant Relationship Specialty Start Date End Date Ad Gonzalez MD PCP - General 06/07/15 documented as of this encounter
--- OUTSIDE RECORDS SUMMARY | 2022-04-06 00:51 | XMS_ITS | Encounter Summary ---
:1960 Author Organization [facility] Address [address] [place] [address] Care Team Providers Name Role Phone Unavailable Primary Care Provider Unavailable Encounter Details Date Type Department Care Team Description 02/19/2002 Hospital Encounter [facility] - [place], Giacomo Sindhu [facility], ANP [address] [facility] [place] [place] [address] [place], [place] [phone] (Wo rk) Social History Tobacco Use Types Packs/Day Years Used Date Never Assessed Sex Assigned at Date Recorded Not on file documented as of this encounter Discharge Disposition Disposition Code Departure Means Destination Auto Discharge documented in this encounter Plan of Treatment Not on filedocumented as of this encounter Procedures Procedure Name Priority Date/Time Associated Diagnosis Comme nts MR UPPER EXTREM JT Routine 02/19/2002 15:43 Resul ts for this W/CONTRAST EDT procedure are i n the results section. FL GUIDE LOCATION, Routine 02/19/2002 14:45 Resul ts for this ASPIRATION, EDT procedure are i n INJECTION, BIOPSY the result s section. documented in this encounter Results MR UPPER EXTREM JT W/CONTRAST (02/19/2002 15:43 EDT) Anatomical Region Laterality Modality Other Specimen Impressions [facility] - 07/06/2009 3: 32 EDT IMPRESSION: 1. Advanced degenerative change of the a cromioclavicular joint, as described, with mild mass effect and sub acromial/subdeltoid bursitis. There is fraying and intrasubstance tear of the distal infraspinatus tendon as well as severe tendinosis of t he supraspinatus tendon. 2. Suspicious signal beneath the superio r labrum as described above. Signal noted within the anterosuperior l abrum most likely represents a sublabral foramen. /lr Wallace [facility] - 07/06/2009 3: 32 EDT RIGHT SHOULDER PAIN R/O ROTATOR CUFF TEAR, LABRAL INJURY MRI OF THE RIGHT SHOULDER 02/19/02 CLINICAL HISTORY: Right shoulder pain. TECHNIQUE: Oblique coronal T1, T1 fat-saturated and T2 fat-saturated, as well as oblique sagittal and axial T1 weighted i mages of the shoulder are obtained following interarticular admini stration of gadolinium during an arthrogram. FINDINGS: Contrast is seen within the glenohumeral joint space, but not extending into the subacromial/subdeltoi d space to suggest a full- thickness rotator cuff tear. There is mo derate subacromial/subdeltoid bursitis. Fluid does extend along the biceps tendo n sheath and may be extravasated from the biceps tendon mathew th at the level of the proximal humeral diaphysis, which may in dicate a tendon sheath tear. There is under-surface fraying of the di stal infraspinatus centrally, as well as an intrasubstance tear at its attachment on the greater tuberosity. There is cystic change withi n the humeral head adjacent to the infraspinatus attachment. There i s thickening and intermediate signal within the distal supraspinatus t endon, consistent with tendinosis. This is particularly promine nt anteriorly at the greater tuberosity attachment. Small cysts withi n the anterior aspect of the humeral head are noted. The subscapulari s tendon is intact. No asymmetric muscle atrophy or denervat ion is seen. There is advanced acromioclavicular arth ropathy with thickening of the fibrous capsule of the acromioclavicular joint and mild underlying mass effect. Mild proliferative change o f the distal end of the acromion and clavicle are noted. The long head of the biceps is anatomica lly maintained. The interarticular biceps and biceps labral anchor are unremarkable. There is oblique signal within the super ior labrum, posterior to the biceps labral attachment in the directio n of the superior glenoid, which may represent a sublabral sulcus. This extends approximately 50% of the width of the superior labrum. A nondisplaced superior labral tear may have a similar appearanc e, however. There is signal hyperintensity within th e anterosuperior labrum, which may simply represent a sublabral foramen . There is no detachment or displacement. The posterior labrum is in tact. Cartilage over the humeral head is prese rved. Procedure Note Santy Kidd, PT - 07/06/2009 RIGHT SHOULDER PAIN R/O ROTATOR CUFF TEAR, LABRAL INJURY MRI OF THE RIGHT SHOULDER 02/19/02 CLINICAL HISTORY: Right shoulder pain. TECHNIQUE: Oblique coronal T1, T1 fat-saturated and T2 fat-saturated, as well as oblique sagittal and axial T1 weighted i mages of the shoulder are obtained following interarticular admini stration of gadolinium during an arthrogram. FINDINGS: Contrast is seen within the glenohumeral joint space, but not extending into the subacromial/subdeltoi d space to suggest a full- thickness rotator cuff tear. There is mo derate subacromial/subdeltoid bursitis. Fluid does extend along the biceps tendo n sheath and may be extravasated from the biceps tendon mathew th at the level of the proximal humeral diaphysis, which may in dicate a tendon sheath tear. There is under-surface fraying of the di stal infraspinatus centrally, as well as an intrasubstance tear at its attachment on the greater tuberosity. There is cystic change withi n the humeral head adjacent to the infraspinatus attachment. There i s thickening and intermediate signal within the distal supraspinatus t endon, consistent with tendinosis. This is particularly promine nt anteriorly at the greater tuberosity attachment. Small cysts withi n the anterior aspect of the humeral head are noted. The subscapulari s tendon is intact. No asymmetric muscle atrophy or denervat ion is seen. There is advanced acromioclavicular arth ropathy with thickening of the fibrous capsule of the acromioclavicular joint and mild underlying mass effect. Mild proliferative change o f the distal end of the acromion and clavicle are noted. The long head of the biceps is anatomica lly maintained. The interarticular biceps and biceps labral anchor are unremarkable. There is oblique signal within the super ior labrum, posterior to the biceps labral attachment in the directio n of the superior glenoid, which may represent a sublabral sulcus. This extends approximately 50% of the width of the superior labrum. A nondisplaced superior labral tear may have a similar appearanc e, however. There is signal hyperintensity within th e anterosuperior labrum, which may simply represent a sublabral foramen . There is no detachment or displacement. The posterior labrum is in tact. Cartilage over the humeral head is prese rved. IMPRESSION IMPRESSION: 1. Advanced degenerative change of the a cromioclavicular joint, as described, with mild mass effect and sub acromial/subdeltoid bursitis. There is fraying and intrasubstance tear of the distal infraspinatus tendon as well as severe tendinosis of t he supraspinatus tendon. 2. Suspicious signal beneath the superio r labrum as described above. Signal noted within the anterosuperior l abrum most likely represents a sublabral foramen. hans Performing Organization Address City/State/ZIP Code Phon e Number [facility] [address] [facility] [address] [facility] [address] [place], [place] [address] FL GUIDE LOCATION, ASPIRATION, INJECTION, BIOPSY (02/19/2002 14:45 EDT) Anatomical Region Laterality Modality Other Specimen Narrative [facility] - 07/06/2009 3: 32 EDT RIGHT SHOULDER PAIN R/O ROTATOR CUFF TEAR, LABRAL INJURY RIGHT SHOULDER ARTHROGRAM 02/19/02 TECHNIQUE: Following informed consent the patient w as placed supine on the table and, using sterile technique and 1% lido miri as a local anesthetic, a 25-gauge spinal needle was advance from an anterior approach into the glenohumeral joint space. This was confi rmed and followed by injection of 5cc Hypaque-60, 5cc 1% lido miri and 10cc of a diluted gadolinium mixture with a drop of epinep hrine. A total volume of 12cc were injected. The patient tolerated the procedure well . There were no immediate complications. FINDINGS: Contrast remains within the glenohumeral joint space and there is no evidence of full-thickness rotator cuff tear. Further evaluation will be performed by MRI. /hans Procedure Note Santy Kidd C, PT - 07/06/2009 RIGHT SHOULDER PAIN R/O ROTATOR CUFF TEAR, LABRAL INJURY RIGHT SHOULDER ARTHROGRAM 02/19/02 TECHNIQUE: Following informed consent the patient w as placed supine on the table and, using sterile technique and 1% lido miri as a local anesthetic, a 25-gauge spinal needle was advance from an anterior approach into the glenohumeral joint space. This was confi rmed and followed by injection of 5cc Hypaque-60, 5cc 1% lido miri and 10cc of a diluted gadolinium mixture with a drop of epinep hrine. A total volume of 12cc were injected. The patient tolerated the procedure well . There were no immediate complications. FINDINGS: Contrast remains within the glenohumeral joint space and there is no evidence of full-thickness rotator cuff tear. Further evaluation will be performed by MRI. /lr Performing Organization Address City/State/ZIP Code Phon e Number [facility] [address] [facility] [place] [address] [facility] [address] [place], [place] [address] documented in this encounter Visit Diagnoses Not on filedocumented in this encounter
--- OUTSIDE RECORDS SUMMARY | 2022-04-06 00:51 | XMS_ITS | Encounter Summary ---
:1960 Author Organization [facility] Address [address] [place] [address] Care Team Providers Name Role Phone Unavailable Primary Care Provider Unavailable Encounter Details Date Type Department Care Team Description 02/18/2002 Hospital Encounter [facility] Ra pedro Garcia MD [address] [facility] [place] [address] [facility] [phone] [place] [address] (Wo rk) Social History Tobacco Use Types Packs/Day Years Used Date Never Assessed Sex Assigned at Date Recorded Not on file documented as of this encounter Discharge Disposition Disposition Code Departure Means Destination Auto Discharge documented in this encounter Plan of Treatment Not on filedocumented as of this encounter Procedures Procedure Name Priority Date/Time Associated Diagnosis Comme nts MR LUMBAR SPINE WO Routine 02/18/2002 14:15 Resul ts for this CONTRAST EDT procedure are i n the results section. documented in this encounter Results MR LUMBAR SPINE WO CONTRAST (02/18/2002 14:15 EDT) Anatomical Region Laterality Modality Other Specimen Impressions [facility] - 07/06/2009 4: 08 EDT IMPRESSION: 1. Mild degenerative disc disease at L5- S1. There is no evidence of disc herniation. D 02/18/02 T 02/19/02 /cornelio Narrative [facility] - 07/06/2009 4: 08 EDT LOW BACK PAIN AND RIGHT LEG PAIN R/O HNP VS DDD MRI LUMBAR SPINE W/O CONTRAST 02/18/02, 1400 hours INDICATIONS: Low back pain and right leg pain; r/o HN P vs DDD TECHNIQUE: Sagittal T1 and T2 and axial T1 and T2 i mages of the lumbar spine are obtained. FINDINGS: The prevertebral soft tissues are normal in appearance. Vertebral body height and alignment is normal. The conus is in normal position at the L1 level. There is a circumscribe d high signal region within the T12 vertebral body, which likely rep resents a hemangioma. There is degenerative change of the L5-S1 disc sp ramona with slight height loss in this region. There is no evidence of dis c herniation. The neural foramina are normal in appearance. Procedure Note Amrita Lam / Lamin Ely MD - 07/06/2009 LOW BACK PAIN AND RIGHT LEG PAIN R/O HNP VS DDD MRI LUMBAR SPINE W/O CONTRAST 02/18/02, 1400 hours INDICATIONS: Low back pain and right leg pain; r/o HN P vs DDD TECHNIQUE: Sagittal T1 and T2 and axial T1 and T2 i mages of the lumbar spine are obtained. FINDINGS: The prevertebral soft tissues are normal in appearance. Vertebral body height and alignment is normal. The conus is in normal position at the L1 level. There is a circumscribe d high signal region within the T12 vertebral body, which likely rep resents a hemangioma. There is degenerative change of the L5-S1 disc sp ramona with slight height loss in this region. There is no evidence of dis c herniation. The neural foramina are normal in appearance. IMPRESSION IMPRESSION: 1. Mild degenerative disc disease at L5- S1. There is no evidence of disc herniation. D 02/18/02 T 02/19/02 /cornelio Performing Organization Address City/State/ZIP Code Phon e Number [facility] [address] [facility] [address] [facility] [address] [place], [place] [address] documented in this encounter Visit Diagnoses Not on filedocumented in this encounter
--- OUTSIDE RECORDS SUMMARY | 2022-04-06 00:51 | XMS_ITS | Encounter Summary ---
:1960 Author Organization [facility] Address [address] [place] [address] Care Team Providers Name Role Phone Unavailable Primary Care Provider Unavailable Encounter Details Date Type Department Care Team Description 06/10/2002 Hospital Encounter [facility] - Ra pedro Garcia MD [id number] [place] [address] [facility] [place] [phone] (Wo rk) Social History Tobacco Use Types [...]
== END ==
PROVIDERS: PCP Physician Assistant; Visit Provider Physician Assistant

== ENCOUNTER → 2022-09-18 02:09 | Outpatient (CLI) | payer MEDICAID, SELFPAY ==
--- NOTE | 2022-09-18 | DI.MAMMO_ITS ---
Exam(s) MAMMO SCREENING EXAM: MAMMO SCREENING CLINICAL HISTORY: SCREENING, Z12.39. TECHNIQUE: Bilateral full field digital CC and MLO mammographic images were obtained with 3D tomosyn thesis and utilizing computer aided detection (CAD). COMPARISON: Prior mammograms were reviewed. FINDINGS: There has been no significant change in the appearance and distribution of the fibroglandular tissue. There are no new spiculated masses nor new malignant appearing microcalcification groups. A subtle group of microcalcifications medial of center in the right breast is unchanged 2014. There is no significant architectural distortion nor skin thickening-retraction. IMPRESSION: Benign findings. No radiographic evidence of malignancy. BI-RADS Category 2 - Benign Findings Breast Density - Category B - Scattered areas of fibroglandular density Breast density Category C or D implies that the patient has dense breast tissue. Dense breast tissue can make it harder to find cancer on a mammogram. Dense breast tissue is also associated with an incr eased risk of breast cancer. This information about the result of the mammogram report was provided to the patient to raise their awareness. Use this report when you speak with the patient about their risks for breast cancer, which includes their family history. At that time, you may recommend additional screening tests (Ultrasoun d or MRI) as these tests may add significant information. A negative radiographic report should not delay biopsy if a dominant or clinically suspicious mass is present. Up to ten percent of cancers are not identified on mammography. A negative report may reinforce clinical impression. Adenosis and dense breasts may obscure an underlying neoplasm. False positive reports average 6 to 10%. Patient will receive a letter notifying them of these results.
--- NOTE | 2022-09-18 | DI.RAD_ITS ---
Exam(s) XR LUMBAR SPINE COMPLETE EXAM: XR LUMBAR SPINE COMPLETE CLINICAL HISTORY: CHRONIC LOW BACK PAIN,M54.5. TECHNIQUE: 2D digital imaging was performed. COMPARISON: No exams were available for comparison FINDINGS: Five views: No evidence of fracture nor listhesis nor pars defects. There is advanced disc space narrowing at L5 -S1 level noted. Milder disc space narrowing at L1-2 and L2-3 levels. Anterior osseous lipping at L 3-4. No osseous lesions. No scoliosis. No obvious facet arthropathy. IMPRESSION: Degenerative disc disease. Most prominent disc space narrowing at is at L5-S1 level. DATA REPOSITORY: RADIATION DOSE DELIVERED:
== END ==
PROVIDERS: PCP Physician Assistant; Visit Provider Physician Assistant
DX: Z12.31 Encounter for screening mammogram for malignant neoplasm of breast (principal); M51.36 Other intervertebral disc degeneration, lumbar region; M48.07 Spinal stenosis, lumbosacral region
CPT/HCPCS: 77063; 77067; 72110

== ENCOUNTER 2023-01-08 01:45 | Outpatient (CLI) | payer MEDICAID, SELFPAY ==
--- NOTE | 2023-01-08 | DI.MRI_ITS ---
Exam(s) MR LOWER JOINT RT WO EXAM: MR LOWER JOINT RT WO CLINICAL HISTORY: RT KNEE JOINT PAIN X 3 MONTHS M25.561. TECHNIQUE: Multiplanar multisequence MRI was performed. COMPARISON: CR XR KNEE RT 3V AP,LAT,BOOKER from 08/29/2021 FINDINGS: BONES: There is no fracture or contusion pattern. JOINTS: There is thinning of the articular cartilage overlying the lateral patellar facet with underl suleman marrow edema. There to clear cartilage is otherwise unremarkable. No joint effusion is seen. TENDONS: Extensor mechanism: Unremarkable. Medial retinaculum: Unremarkable. Lateral retinaculum: Unremarkable. Popliteus: Unremarkable. MUSCLES: Unremarkable. MENISCI: There is a tear of the body and posterior horn of the medial meniscus. There is fluid signa l adjacent to the posterior posterior aspect of the body of the medial meniscus which may represent a parameniscal cyst. The lateral meniscus is unremarkable. SOFT TISSUES: Unremarkable. LIGAMENTS: Anterior Cruciate: Unremarkable. Posterior Cruciate: Unremarkable. Medial Collateral:There is some fluid seen between the medial meniscus and the MCL posteriorly suspic ious for meniscal capsular separation. Lateral Collateral: Unremarkable. OTHER: IMPRESSION: 1. Tear of the body and posterior horn of the medial meniscus. 2. Findings suspicious for a parameniscal cyst adjacent to the medial meniscus. 3. There is some fluid seen between the medial meniscus in the MCL posteriorly which may represent se paration. 4. Edema seen in the soft tissues of the medial knee. DATA REPOSITORY:
== END 2023-01-08 02:05 ==
LOC: DI 01:46
PROVIDERS: PCP Physician Assistant; Visit Provider Physician Assistant
DX: M25.561 Pain in right knee (principal); R93.7 Abnormal findings on diagnostic imaging of other parts of musculoskeletal system
CPT/HCPCS: 73721

== ENCOUNTER 2023-06-04 19:57 | Outpatient (REF) | payer MEDICAID, SELFPAY ==
[2023-06-04 17:10] LABS: Hemoglobin A1C 8.7 % (<5.7)
[2023-06-04 17:35] LABS: ALT 38 U/L (14-59); AST 49 U/L (15-37); Alkaline Phosphatase 68 U/L (46-116); BUN 25 mg/dL (7-18); Bilirubin, Total 0.7 mg/dL (0.2-1.0); CREATININE 1.5 mg/dL (0.55-1.02); Calcium 8.2 mg/dL (8.5-10.1); Calculated LDL 96 mg/dL (<100); Chloride 101 mmol/L (98-107); Cholesterol 170 mg/dL (<200); Estimated GFR 38.91 (mL/min/1.73m2); Glucose 144 mg/dL (74-106); HDL Cholesterol 45 mg/dL (40-60); Potassium 3.7 mmol/L (3.5-5.1); Sodium 138 mmol/L (136-145); Total Protein 7.9 g/dL (6.4-8.2); Triglyceride 146 mg/dL (<150)
[2023-06-04 17:53] LABS: Uric Acid 6.8 mg/dL (2.6-6.0)
[2023-06-04 20:31] LABS: Microalb ug/mg Crea 6.5 ug/mg Cr
== END 2023-06-04 19:58 | disposition home or self-care (01) ==
LOC: NCHCN 19:57
PROVIDERS: PCP Physician Assistant; Visit Provider Physician Assistant
DX: M10.9 Gout, unspecified (principal); E11.9 Type 2 diabetes mellitus without complications; I10 Essential (primary) hypertension
CPT/HCPCS: 80053; 80061; 82043; 82570; 83036; 84550

== ENCOUNTER 2023-10-25 14:49 | Outpatient (REF) | payer MEDICAID, SELFPAY ==
--- OUTSIDE RECORDS SUMMARY | 2023-10-25 14:51 | XMS_ITS | CCD ---
Author Name Unknown Address [address] [place] [phone] Organization Unknown Address [address] [place] [id number] Care Team Providers Care Hotel Maintenance Worker Name Role Phone JUAN VINCENT Attending Physician [phone] JUAN VINCENT Rounding (Secondary) Physician [phone] Vital Signs Unknown or Not Available. Allergies Unknown or Not Available. Procedures Unknown or Not Available. History of Immunizations Unknown or Not Available. Problems Unknown or Not Available. Results Unknown or Not Available. Active Medications Unknown or Not Available. Medications Administered During Visit Unknown or Not Available. Encounters Encounter Diagnosis Diagnosis Code Start Date Derangement of unspecified m edial meniscus due to old tear or injury, right knee [id number] 09/12/2023 Social History Unknown or Not Available. Patient Decision Aids Unknown or Not Available. Discharge Instructions You were admitted to [facility] on 09/12/2023 10:21 with a principal diagnosis of Derangement of unspecified medial meniscus due to old tear or injury, right knee You were discharged from [facility] on 09/12/2023 10:22 Should you have any questions prior to discharge, please contact a member of your healthcare team. If you have left the hospital and have any questions, please contact your primary care physician. Chief Complaint and Reason For Visit Unknown or Not Available. Function Status Unknown or Not Available. Plan of Care Unknown or Not Available. Referral/Transition of Care Unknown or Not Available.
[2023-10-25 15:15] LABS: HCT 40.3 % (36.0-46.0); HGB 14.1 g/dL (11.2-15.7); MCH 32.2 pg (27.0-33.0); MCV 92 fL (80-95); MPV 12.5 fL (8.0-11.0); Platelet Count 226 10^3/uL (130-400); RBC 4.38 10^6/uL (3.93-5.22); RDW 13.4 % (11.7-14.6); WBC 7.98 10^3/uL (4.4-10.8)
[2023-10-25 15:32] LABS: ALT 27 U/L (14-59); AST 27 U/L (15-37); Albumin 4.2 g/dL (3.4-5.0); Alkaline Phosphatase 52 U/L (46-116); Anion Gap 10.3 mmol/L (3-11); BUN 15 mg/dL (7-18); Bilirubin, Total 0.6 mg/dL (0.2-1.0); CO2 29.7 mmol/L (21.0-32.0); CREATININE 1.1 mg/dL (0.55-1.02); Calcium 7.2 mg/dL (8.5-10.1); Chloride 102 mmol/L (98-107); Estimated GFR 56.46 (mL/min/1.73m2); Glucose 110 mg/dL (74-106); Potassium 3.6 mmol/L (3.5-5.1); Sodium 142 mmol/L (136-145); Total Protein 7.9 g/dL (6.4-8.2)
[2023-10-25 15:56] LABS: Hemoglobin A1C 6.6 % (<5.7)
== END 2023-10-25 14:50 | disposition home or self-care (01) ==
LOC: NCHCN 14:49
PROVIDERS: PCP Physician Assistant; Visit Provider Physician Assistant
DX: E11.9 Type 2 diabetes mellitus without complications (principal); I10 Essential (primary) hypertension
CPT/HCPCS: 80053; 85027; 83036

== ENCOUNTER 2024-01-07 17:06 | Outpatient (REF) | payer MEDICAID, SELFPAY ==
[2024-01-07 16:32] LABS: ALT 18 U/L (14-59); AST 18 U/L (15-37); Albumin 3.8 g/dL (3.4-5.0); Alkaline Phosphatase 58 U/L (46-116); BUN 18 mg/dL (7-18); Bilirubin, Total 0.5 mg/dL (0.2-1.0); CREATININE 1.1 mg/dL (0.55-1.02); Calcium 7.3 mg/dL (8.5-10.1); Chloride 101 mmol/L (98-107); Estimated GFR 56.11 (mL/min/1.73m2); Glucose 133 mg/dL (74-106); Potassium 3.2 mmol/L (3.5-5.1); Sodium 143 mmol/L (136-145); Total Protein 7.3 g/dL (6.4-8.2)
[2024-01-07 17:13] LABS: Magnesium 0.7 mg/dL (1.8-2.4)
[2024-01-07 17:53] LABS: Vitamin D 25 Total 33.5 ng/mL (30-100)
[2024-01-07 23:30] LABS: Parathyroid Hormone,Intact 34 pg/mL (19-88)
== END 2024-01-07 17:07 | disposition home or self-care (01) ==
LOC: NCHCN 17:06
PROVIDERS: PCP Physician Assistant; Visit Provider Physician Assistant
DX: E83.51 Hypocalcemia (principal)
CPT/HCPCS: 80053; 82306; 83735; 83970

== ENCOUNTER 2024-02-04 15:09 | Outpatient (REF) | payer MEDICAID, SELFPAY ==
[2024-02-04 19:38] LABS: Hemoglobin A1C 6.2 % (<5.7)
[2024-02-04 19:52] LABS: ALT 22 U/L (14-59); AST 20 U/L (15-37); Albumin 4.2 g/dL (3.4-5.0); Alkaline Phosphatase 65 U/L (46-116); Anion Gap 10.8 mmol/L (3-11); BUN 21 mg/dL (7-18); Bilirubin, Total 0.4 mg/dL (0.2-1.0); CO2 27.2 mmol/L (21.0-32.0); CREATININE 1.1 mg/dL (0.55-1.02); Calcium 9.7 mg/dL (8.5-10.1); Chloride 104 mmol/L (98-107); Estimated GFR 56.11 (mL/min/1.73m2); Folate 8.3 ng/mL (8.6-20.0); Glucose 121 mg/dL (74-106); Magnesium 1.6 mg/dL (1.8-2.4); Potassium 4.4 mmol/L (3.5-5.1); Sodium 142 mmol/L (136-145); Total Protein 7.7 g/dL (6.4-8.2); Vitamin B12 244 pg/mL (193-986)
== END 2024-02-04 15:10 | disposition home or self-care (01) ==
LOC: NCHCN 15:09
PROVIDERS: PCP Physician Assistant; Visit Provider Nurse Practitioner Family
DX: E83.42 Hypomagnesemia (principal); E11.9 Type 2 diabetes mellitus without complications
CPT/HCPCS: 80053; 82607; 82746; 83036; 83735